=== PATIENT | female | born 1945 ===

== ENCOUNTER → 2018-03-07 | Outpatient (CLI) | payer MEDICARE, OTHER ==
[~2018-03-07] MED LIST: IOPAMIDOL (ISOVUE-300) 100 ML BTL ONE
== END ==
LOC: FIMAGING 13:52
PROVIDERS: ATTEND Physician Assistant
DX: K74.60 Unspecified cirrhosis of liver (principal); K76.89 Other specified diseases of liver; R18.8 Other ascites; K82.8 Other specified diseases of gallbladder; N28.1 Cyst of kidney, acquired
CPT/HCPCS: 74178; Q9967

== ENCOUNTER 2018-03-15 09:19 | Outpatient (CLI) | payer OTHER ==
[2018-03-15] MEDS ORDERED: BUPIVACAINE 0.25% 30 ML SDV ONE (10:02)
[2018-03-15] MEDS ORDERED: LIDOCAINE 1% 300 MG/30 ML SDV ONE (10:02)
[2018-03-15 10:15] LABS: INR 1.33 (0.83-1.16); PROTIME(PATIENT) 16.7 SEC (12.0-15.0)
[2018-03-15] MEDS ORDERED: FLUMAZENIL 0.5 MG/5 ML MDV IVP PRN (10:28)
[2018-03-15] MEDS ORDERED: PROTAMINE SULFATE 50 MG/5 ML VIAL IVP PRN (10:28)
[2018-03-15] MEDS ORDERED: MIDAZOLAM 2 MG/2 ML VIAL IVP PRN (10:28)
[2018-03-15] MEDS ORDERED: NALOXONE HCL 0.4 MG/ML INJ IVP PRN (10:28)
[2018-03-15] MEDS ORDERED: fentaNYL 100 MCG/2 ML INJ IVP PRN (10:28)
[2018-03-15] MEDS ORDERED: NS 1,000 ML IV SCH (10:30)
[2018-03-15] MEDS ORDERED: ONDANSETRON 4 MG/2 ML VIAL IVP PRN (12:03)
[2018-03-15] MEDS ORDERED: oxyCODONE IR 5 MG TAB PO PRN (12:03)
--- NOTE | 2018-03-15 12:06 | PDGENHP ---
History & Physical Chief Complaint: LIVER MASSES History of Present Illness: LIVER MASSES, AND DISTAL ESOPHAGEAL MASS POST BX Pertinent Past, Social, Family History: NON SMOKER Relevant Physical Exam: SOFT ABDOMEN, RRR, LUNGS CLEAR Cardiorespiratory Assessment: RRR, LUNGS CLEAR
--- NOTE | 2018-03-15 12:06 | PDPROPOC ---
Sedation Plan of Care Sedation Plan of Care: vital signs stable, mental status noted, patient educated of risks, benefits, alternatives, patient can tolerate sedation ASA Classification: ASA 1 Planned drugs: fentanyl, midazolam Mallampati Score: Class 1 Mallampati Reference Image: Patient passed 3-3-2 rule?: Yes
--- NOTE | 2018-03-15 12:07 | PDRADPN ---
Radiology Procedure Note Date of Procedure: 03/15/18 Radiologist: Tay Barkley Anesthesia: Local (Specify) (LIDOCAINE) Inf/Abcess present in the surg proc area at time of surgery?: No Depth: Organ Space (LIVER) EBL: Minimal Complications: NONE Specimen(s): 2 LIVER BX
[2018-03-15 15:00] VITALS: BP 111/72
== END 2018-03-15 15:03 | disposition home or self-care (01) ==
LOC: FIMAGING 09:19
PROVIDERS: ATTEND Physician Assistant
PROC: 0FB03ZX Excision of Liver, Percutaneous Approach, Diagnostic (ICD-10-PCS; principal; 2018-03-15 11:55)
DX: C78.7 Secondary malignant neoplasm of liver and intrahepatic bile duct (principal)
CPT/HCPCS: 47000; 76942; 88307; 88341; 88342; 99152; 99153; J2250; J3010; J2310

== ENCOUNTER 2018-03-24 19:21 | Inpatient (IN) | payer OTHER ==
--- NOTE | 2018-03-24 19:38 | EDPHY ---
H & P Stated Complaint: SOB X 1 DAY, R/T PAIN R RIBCAGE/RECENT DX ESOPHAGEAL,LIVER CA Time Seen by Provider: 03/24/18 19:37 - Personal History Current Tetanus Diphtheria and Acellular Pertussis (TDAP): No - Medical/Surgical History Hx Asthma: No Hx Chronic Respiratory Disease: No Hx Diabetes: No Hx Cardiac Disease: No Hx Renal Disease: No Hx Cirrhosis: No Hx Alcoholism: No Hx HIV/AIDS: No Hx Splenectomy or Spleen Trauma: No Other PMH: ESOPHAGEAL AND LIVER CA, HIATAL HERNIA, ANKLE, CARPAL, EYE SX - Social History Smoking Status: Former smoker Constitutional: Initial Vital Signs Temperature (C) 36.4 C 03/24/18 19:26 Heart Rate 128 H 03/24/18 19:26 Respiratory Rate 32 H 03/24/18 19:26 Blood Pressure 142/94 H 03/24/18 19:26 O2 Sat (%) 97 03/24/18 19:26 O2 Delivery Mode Nasal Cannula O2 (L/minute) 2 Allergies/Adverse Reactions: shellfish derived Allergy (Severe, Verified 03/08/18 16:21) Anaphylaxis tree nut [Nuts] Allergy (Severe, Verified 03/08/18 16:21) Anaphylaxis Penicillins Allergy (Verified 03/24/18 21:14) Rash/ couldn't breath Sulfa (Sulfonamide Antibiotics) Allergy (Verified 03/24/18 21:14) Swelling Home Medications: Medication Instructions Recorded ALPRAZolam [Xanax 0.5 MG (*)] 0.5 mg PO 03/24/18 Herbals/Supplements -Info Only 1 ea PO DAILY 03/24/18 Methyl Salicylate/Menthol 1 each TP DAILY PRN 03/24/18 [SALONPAS PATCH] Ranitidine HCl [Zantac] 150 mg PO BID 03/24/18 Medical Decision Making - Diagnostics Imaging Results: Imaging Impressions Abdomen CT 03/24/18 19:49 Impression: 1. Extensive hepatic metastatic disease appears to have progressed since the prior study 2. Thickening of the GE junction possibly representing primary esophageal cancer. 3. Increase in mild ascites. Findings discussed with Barry Davis MD at 20:50 hour, 03/24/2018. Chest/Thorax CTA 03/24/18 19:49 Impression: 1. No evidence of pulmonary embolus using CT protocol. 2. Large hiatal hernia with moderate thickening of the distal esophagus near the GE junction presumably related to known esophageal cancer. 3. Small right pleural effusion. Findings discussed with Barry Davis MD at 20:45 hour, 03/24/2018. Imaging: Discussed imaging studies w/ orthopedically impaired teacher Radiologist, I viewed and interpreted images myself ED Course/Re-evaluation: CHIEF COMPLAINT: Shortness of breath, abdominal pain HISTORY OF PRESENT ILLNESS: The patient is a 72 y/o female with a history of liver and esophageal cancer complaining of shortness of breath and right rib pain onset today. She denies having a cough. In addition to her shortness of breath, she also has a distended abdomen. She first noticed the distended abdomen on Sunday, 6 days ago , after an endoscopy. Due to the pain and shortness of breath, she decided to present to the emergency department. She denies headache, chest pain, urinary or bowel complaints, numbness, paresthesias, fevers. REVIEW OF SYSTEMS: A comprehensive 10 system review of systems is otherwise negative aside from elements mentioned in the history of present illness and medical decision making. PHYSICAL EXAM: HR, BP, O2 Sat, RR. Temp noted General Appearance: Alert, well hydrated, appropriate, and non-toxic appearing. Head: Atraumatic without scalp tenderness or obvious injury Eyes: Pupils equal, round, reactive to light and accommodation, EOMI, no trauma , no injection. Ears: Clear bilaterally, no perforation, normal landmarks Nose: Atraumatic, no rhinorrhea, clear. Throat: There is no erythema or exudates, no lesions, normal tonsils, mucus membranes moist. Neck: Supple, 2+ carotid upstroke, nontender, no lymphadenopathy. Respiratory: Bilateral rales, right greater than left. Working to breath, but is not hypoxic. Cardiovascular: Tachycardic, no murmurs, rubs, or gallops. Bilateral carotid, radial, dorsalis pedis, and posterior tibial pulses intact. Good capillary refill all extremities. Gastrointestinal: Abdomen is distended, rigid, and diffusely tender to palpation. No guarding or peritoneal signs. Musculoskeletal: Normal active ROM of all extremities, atraumatic. Neurological: Alert, appropriate, and interactive. The patient has normal DTRs and non-focal cranial nerves, motor, sensory, and cerebellar exam. Skin: No rashes, good turgor, no nodules on palpation. Past medical history: Esophageal and liver cancer, hiatal hernia Past surgical history: Ankle and wrist surgery, eye surgery Family history: Denies Social history: Family at bedside, lives in [place], retired, followed by Dr. Fernandez, oncologist DIAGNOSTICS/PROCEDURES/CRITICAL CARE TIME: EKG: The 12 lead EKG was interpreted by myself as sinus tachycardia with a rate of 117. See hard copy and/or "tracemaster" electronic copy for interpretation. Chest CTA: No acute findings, no PE Abdominopelvic CT: Worsening metastases and ascites DIFFERENTIAL DIAGNOSIS: The differential diagnosis for the patient's shortness of breath and hypoxemia included but was not limited to pneumonia, myocardial infarction, acute mountain sickness, high altitude pulmonary edema, congestive heart failure, and pulmonary embolus. The differential diagnosis for the patient's abdominal pain included but was not limited to metastases, ascites, ovarian cyst, pelvic inflammatory disease, ovarian torsion, urinary tract infection, ectopic , cholecystitis, and appendicitis. MEDICAL DECISION MAKING: The patient is a 72 y/o female with a history of liver and esophageal cancer complaining of shortness of breath and right rib pain onset today. On exam she is working to breath, tachypneic, and has bilateral rales (right is worse than left). She also has a distended and rigid abdomen. Labs, EKG, chest CTA, and abdominopelvic CT ordered; 1L IV NS and 1mg IV Dilaudid administered. 1946: I interpreted patient's EKG as sinus tachycardia with a rate of 117. 2012: Patient's WBC is 28,000. 2049: I spoke with Dr. Long, radiologist, who reports that the patient has worsening metastases and ascites. Her poor diaphragmatic excursion is most likely due to the abdominal pain and distension. She will need to admitted for pain control. 2gm Ceftriaxone administered. 2102: I consulted with the hospitalist service, Dr. Vigil accepts admission of this patient. 2129: Reassessed patient and discussed imaging and laboratory findings. I have also discussed plan for admission; which she is comfortable with. - Data Points Laboratory Results: Laboratory Results 03/24/18 19:45 03/24/18 19:45 03/24/18 03/24/18 03/24/18 19:53 19:45 19:45 WBC 28.26 10^3/uL H 10^3/uL (3.80-9.50) RBC 3.67 10^6/uL L 10^6/uL (4.18-5.33) Hgb 10.0 g/dL L g/dL (12.6-16.3) POC Hgb 11.9 gm/dL L gm/dL (12.6-16.3) Hct 31.1 % L % (38.0-47.0) POC Hct 35 % L % (38-47) MCV 84.7 fL fL (81.5-99.8) MCH 27.2 pg L pg (27.9-34.1) MCHC 32.2 g/dL L g/dL (32.4-36.7) RDW 15.3 % H % (11.5-15.2) Plt Count 798 10^3/uL H 10^3/uL (150-400) MPV 8.6 fL L fL (8.7-11.7) Neut % (Auto) Not Reported Lymph % (Auto) Not Reported [place] % (Auto) Not Reported Eos % (Auto) Not Reported Baso % (Auto) Not Reported Nucleat RBC Rel Count Not Reported Absolute Neuts (auto) Not Reported Absolute Lymphs (auto) Not Reported Absolute Monos (auto) Not Reported Absolute Eos (auto) Not Reported Absolute Basos (auto) Not Reported Absolute Nucleated RBC Not Reported Immature Gran % Not Reported Seg Neutrophils % 82.0 % % Band Neutrophils % 8.0 % % Lymphocytes % 3.0 % % Monocytes % 7.0 % % Eosinophils % 0.0 % % Basophils % 0.0 % % Metamyelocytes % 0.0 % % Myelocytes % 0.0 % % Promyelocytes % 0.0 % % Blast Cells % 0.0 % % Immature Gran # Not Reported Absolute Seg Neuts 23.17 10^/uL H 10^/uL (1.70-6.50) Absolute Band Neuts 2.26 10^3/uL H 10^3/uL (0.00-0.70) Absolute Lymphocytes 0.85 10^3/uL L 10^3/uL (1.00-3.00) Absolute Monocytes 1.98 10^3/uL H 10^3/uL (0.30-0.80) Absolute Eosinophils 0.00 10^3/uL L 10^3/uL (0.03-0.40) Absolute Basophils 0.00 10^3/uL L 10^3/uL (0.02-0.10) Absolute Metamyelocyte 0.00 10^3/mL 10^3/mL (0.00-0.00) Absolute Myelocytes 0.00 10^3/mL 10^3/mL (0.00-0.00) Absolute Promyelocytes 0.00 10^3/uL 10^3/uL (0.00-0.00) Absolute Plasma Cells 0.00 10^3/uL 10^3/uL (0.00-0.00) Nucleated RBCs 0 /100 WBC /100 WBC (0-0) Absolute Blast Cells 0.00 10^3/uL 10^3/uL (0.00-0.00) Plasma Cells % 0.0 % % Platelet Estimate INCREASED H (ADEQ) Polychromasia 1+ H Microcytic Cells 1+ H Echinocytes 1+ H POC Sodium 129 mEq/L L mEq/L (135-145) Sodium 129 mEq/L L mEq/L (135-145) POC Potassium 4.3 mEq/L mEq/L (3.3-5.0) Potassium 5.0 mEq/L mEq/L (3.3-5.0) POC Chloride 90 mEq/L L mEq/L (97-110) Chloride 88 mEq/L L mEq/L (97-110) Carbon Dioxide 19 mEq/l L mEq/l (22-31) Anion Gap 22 mEq/L H mEq/L (8-16) POC BUN 20 mg/dL mg/dL (7-23) BUN 21 mg/dL mg/dL (7-23) Creatinine 0.6 mg/dL mg/dL (0.6-1.0) POC Creatinine 0.6 mg/dL mg/dL (0.6-1.0) Estimated GFR > 60 Glucose 101 mg/dL H mg/dL (70-100) POC Glucose 105 mg/dL H mg/dL (70-100) Calcium 8.8 mg/dL mg/dL (8.5-10.4) Total Bilirubin 1.9 mg/dL H mg/dL (0.1-1.4) Conjugated Bilirubin 1.4 mg/dL H mg/dL (0.0-0.5) Unconjugated Bilirubin 0.5 mg/dL mg/dL (0.0-1.1) AST 231 IU/L H IU/L (14-46) ALT 97 IU/L H IU/L (9-52) Alkaline Phosphatase 390 IU/L H IU/L (38-126) Total Protein 6.1 g/dL L g/dL (6.3-8.2) Albumin 2.9 g/dL L g/dL (3.5-5.0) Lipase 161 IU/L IU/L (23-300) Medications Given: Discontinued Medications Hydromorphone HCl (Dilaudid) 1 mg IVP EDNOW ONE Stop: 03/24/18 19:55 Last Admin: 03/24/18 19:58 Dose: 1 mg Sodium Chloride (Ns) 1,000 mls @ 0 mls/hr IV EDNOW ONE; Wide Open PRN Reason: Protocol Stop: 03/24/18 19:48 Last Admin: 03/24/18 19:59 Dose: 1,000 mls Point of Care Test Results: Chemistry 03/24/18 19:53 POC Sodium 129 mEq/L L mEq/L (135-145) POC Potassium 4.3 mEq/L mEq/L (3.3-5.0) POC Chloride 90 mEq/L L mEq/L (97-110) POC BUN 20 mg/dL mg/dL (7-23) POC Creatinine 0.6 mg/dL mg/dL (0.6-1.0) POC Glucose 105 mg/dL H mg/dL (70-100) ISTAT H&H 03/24/18 19:53 POC Hgb 11.9 gm/dL L gm/dL (12.6-16.3) POC Hct 35 % L % (38-47) Departure - Departure Disposition: [facility] Inpatient Acute Clinical Impression: Pain management Ascites Qualifiers: Ascites type: malignant Qualified Code(s): R18.0 - Malignant ascites Metastasis Qualifiers: Area of secondary neoplastic involvement: digestive structure Digestive structure secondary neoplasm location: metastatic to liver Qualified Code(s): C78.7 - Secondary malignant neoplasm of liver and intrahepatic bile duct Condition: Fair Referrals: Rashida Rios PA [Primary Care Provider] - As per Instructions Report Scribed for: Barry Davis Report Scribed by: Damaris Plasencia Date of Report: 03/24/18 Time of Report: 19:38
[2018-03-24] MEDS ORDERED: NS 1,000 ML IV ONE (19:47)
[2018-03-24] MEDS ORDERED: HYDROmorphONE/DILAUDID 2 MG/ML INJ IVP ONE (19:54)
[2018-03-24] MEDS ORDERED: IOPAMIDOL (ISOVUE 370) 100 ML BTL IV ONE (19:57)
--- NOTE | 2018-03-24 20:02 | CPEKG ---
Test Reason : OPEN Blood Pressure : / mmHG Vent. Rate : 117 BPM Atrial Rate : 117 BPM P-R Int : 125 ms QRS Dur : 072 ms QT Int : 281 ms P-R-T Axes : 064 -64 046 degrees QTc Int : 392 ms Sinus tachycardia Inferior infarct, old Anterior infarct, old Confirmed by Barry Davis ([id number]) on 03/24/2018 8:01:36 PM Referred By: Confirmed By:Barry Davis
[2018-03-24 20:09] LABS: PLATELET COUNT 798 10^3/uL (150-400)
[2018-03-24] MEDS ORDERED: ONDANSETRON DISINTEGRATING 4 MG TAB PO PRN (21:20)
[2018-03-24] MEDS ORDERED: ONDANSETRON 4 MG/2 ML VIAL IVP PRN (21:20)
[2018-03-24] MEDS ORDERED: PROMETHAZINE HCL 25 MG/ML INJ IVP PRN (21:20)
[2018-03-24] MEDS ORDERED: ALBUMIN 5% 250 ML IV ONE (21:20)
[2018-03-24] MEDS ORDERED: ACETAMINOPHEN 325 MG TAB PO PRN (21:20)
[2018-03-24] MEDS ORDERED: PROMETHAZINE HCL 25 MG TAB PO PRN (21:20)
[2018-03-24] MEDS ORDERED: oxyCODONE IR 5 MG TAB PO PRN (21:20)
[2018-03-24] MEDS ORDERED: MENTHOL TP PRN (21:23)
[2018-03-24] MEDS ORDERED: ALPRAZolam 0.25 MG TAB PO PRN (21:23)
[2018-03-24] MEDS ORDERED: METHYL SALICYLATE TP PRN (21:23)
--- NOTE | 2018-03-24 22:31 | PDGENHP ---
History and Physical - Chief Complaint Acute abdominal pain - History of Present Illness Primary care provider: Dr. Katherine Rios Primary oncologist: Dr. Indra Fernandez HPI: 72-year-old female presenting with acute abdominal pain located in the right upper quadrant with associated abdominal distension, belching, shortness of breath, with onset of symptoms on the day of presentation and significant worsening thereafter. Patient reports that her abdominal distension began approximately 6 days ago but was not accompanied by the other symptoms until today. Belching has somewhat alleviated her symptom of abdominal discomfort as has Dilaudid received in the emergency department. Shortness of breath is exacerbated by deep inspiration. She has moved her bowels on the day of presentation, reportedly normal appearing stool. She does not have any oral pain medications for pain relief at home. Of note, the patient was recently diagnosed with metastatic esophageal cancer and has been scheduled to receive port placement on 04/01, with chemotherapy thereafter. History Information - Allergies/Home Medication List Allergies/Adverse Reactions: shellfish derived Allergy (Severe, Verified 03/08/18 16:21) Anaphylaxis tree nut [Nuts] Allergy (Severe, Verified 03/08/18 16:21) Anaphylaxis Penicillins Allergy (Verified 03/24/18 21:14) Rash/ couldn't breath Sulfa (Sulfonamide Antibiotics) Allergy (Verified 03/24/18 21:14) Swelling Home Medications: ALPRAZolam [Xanax 0.5 MG (*)] 0.25 mg PO HS PRN 03/24/18 [Last Taken Unknown] Herbals/Supplements -Info Only 1 ea PO DAILY 03/24/18 [Last Taken Unknown] Methyl Salicylate/Menthol [SALONPAS PATCH] 1 each TP DAILY PRN 03/24/18 [Last Taken 03/24/18] Ranitidine HCl [Zantac] 150 mg PO BID 03/24/18 [Last Taken 03/24/18 09:00] I have personally reviewed and updated: family history, medical history, social history, surgical history - Past Medical History Additional medical history: 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 - Surgical History Additional surgical history: Liver biopsy on 03/15 - Family History Additional family history: Mother with CVA and venous thromboembolism, father with lung cancer and venous thromboembolism - Social History Smoking Status: Former smoker Alcohol Use: None Drug Use: None Additional social history: Normally independent in ADLs Review of Systems Review of Systems: ROS: 10pt was reviewed & negative except for what was stated in HPI & below Constitutional: Reports: weakness Respiratory: Reports: shortness of breath Gastrointestinal: Reports: abdominal pain, abdominal distention, other (Belching ) Physical Exam Physical Exam: Temp Pulse Resp BP Pulse Ox 36.4 C 112 H 21 H 133/88 H 96 03/24/18 19:26 03/24/18 21:00 03/24/18 21:00 03/24/18 21:00 03/24/18 21:00 Constitutional: no apparent distress, not in pain, chronically ill appearing, uncomfortable, cachectic Eyes: PERRL, anicteric sclera, EOMI Ears, Nose, Mouth, Throat: moist mucous membranes, hearing normal, ears appear normal, no oral mucosal ulcers Cardiovascular: tachycardia, edema (Trace bilateral lower extremity), No systolic murmur, No irregularly irregular Respiratory: reduced air movement (Bilateral bases), No expiratory wheeze, No inspiratory crackles, No bronchial breath sounds Gastrointestinal: tenderness (Mild to moderate depth in the mid epigastric area palpation), ascites, distension (Moderate to severe), other (Possible abdominal wall masses palpated), No guarding Skin: warm, No rash Neurologic: AAOx3, No weakness (Motor strength 5/5 bilateral lower extremities) , No facial droop Psychiatric: interacting appropriately, not anxious, not encephalopathic, thought process linear, other (Intermittently lethargic) Lab Data & Imaging Review 03/24/18 19:45 03/24/18 19:45 WBC 28.26 10^3/uL (3.80-9.50) H 03/24/18 19:45 RBC 3.67 10^6/uL (4.18-5.33) L 03/24/18 19:45 Hgb 10.0 g/dL (12.6-16.3) L 03/24/18 19:45 POC Hgb 11.9 gm/dL (12.6-16.3) L 03/24/18 19:53 Hct 31.1 % (38.0-47.0) L 03/24/18 19:45 POC Hct 35 % (38-47) L 03/24/18 19:53 MCV 84.7 fL (81.5-99.8) 03/24/18 19:45 MCH 27.2 pg (27.9-34.1) L 03/24/18 19:45 MCHC 32.2 g/dL (32.4-36.7) L 03/24/18 19:45 RDW 15.3 % (11.5-15.2) H 03/24/18 19:45 Plt Count 798 10^3/uL (150-400) H 03/24/18 19:45 MPV 8.6 fL (8.7-11.7) L 03/24/18 19:45 Neut % (Auto) Not Reported 03/24/18 19:45 Lymph % (Auto) Not Reported 03/24/18 19:45 [place] % (Auto) Not Reported 03/24/18 19:45 Eos % (Auto) Not Reported 03/24/18 19:45 Baso % (Auto) Not Reported 03/24/18 19:45 Nucleat RBC Rel Count Not Reported 03/24/18 19:45 Absolute Neuts (auto) Not Reported 03/24/18 19:45 Absolute Lymphs (auto) Not Reported 03/24/18 19:45 Absolute Monos (auto) Not Reported 03/24/18 19:45 Absolute Eos (auto) Not Reported 03/24/18 19:45 Absolute Basos (auto) Not Reported 03/24/18 19:45 Absolute Nucleated RBC Not Reported 03/24/18 19:45 Immature Gran % Not Reported 03/24/18 19:45 Seg Neutrophils % 82.0 % 03/24/18 19:45 Band Neutrophils % 8.0 % 03/24/18 19:45 Lymphocytes % 3.0 % 03/24/18 19:45 Monocytes % 7.0 % 03/24/18 19:45 Eosinophils % 0.0 % 03/24/18 19:45 Basophils % 0.0 % 03/24/18 19:45 Metamyelocytes % 0.0 % 03/24/18 19:45 Myelocytes % 0.0 % 03/24/18 19:45 Promyelocytes % 0.0 % 03/24/18 19:45 Blast Cells % 0.0 % 03/24/18 19:45 Immature Gran # Not Reported 03/24/18 19:45 Absolute Seg Neuts 23.17 10^/uL (1.70-6.50) H 03/24/18 19:45 Absolute Band Neuts 2.26 10^3/uL (0.00-0.70) H 03/24/18 19:45 Absolute Lymphocytes 0.85 10^3/uL (1.00-3.00) L 03/24/18 19:45 Absolute Monocytes 1.98 10^3/uL (0.30-0.80) H 03/24/18 19:45 Absolute Eosinophils 0.00 10^3/uL (0.03-0.40) L 03/24/18 19:45 Absolute Basophils 0.00 10^3/uL (0.02-0.10) L 03/24/18 19:45 Absolute Metamyelocyte 0.00 10^3/mL (0.00-0.00) 03/24/18 19:45 Absolute Myelocytes 0.00 10^3/mL (0.00-0.00) 03/24/18 19:45 Absolute Promyelocytes 0.00 10^3/uL (0.00-0.00) 03/24/18 19:45 Absolute Plasma Cells 0.00 10^3/uL (0.00-0.00) 03/24/18 19:45 Nucleated RBCs 0 /100 WBC (0-0) 03/24/18 19:45 Absolute Blast Cells 0.00 10^3/uL (0.00-0.00) 03/24/18 19:45 Plasma Cells % 0.0 % 03/24/18 19:45 Platelet Estimate INCREASED (ADEQ) H 03/24/18 19:45 Polychromasia 1+ H 03/24/18 19:45 Microcytic Cells 1+ H 03/24/18 19:45 Echinocytes 1+ H 03/24/18 19:45 POC Sodium 129 mEq/L (135-145) L 03/24/18 19:53 Sodium 129 mEq/L (135-145) L 03/24/18 19:45 POC Potassium 4.3 mEq/L (3.3-5.0) 03/24/18 19:53 Potassium 5.0 mEq/L (3.3-5.0) 03/24/18 19:45 POC Chloride 90 mEq/L (97-110) L 03/24/18 19:53 Chloride 88 mEq/L (97-110) L 03/24/18 19:45 Carbon Dioxide 19 mEq/l (22-31) L 03/24/18 19:45 Anion Gap 22 mEq/L (8-16) H 03/24/18 19:45 POC BUN 20 mg/dL (7-23) 03/24/18 19:53 BUN 21 mg/dL (7-23) 03/24/18 19:45 Creatinine 0.6 mg/dL (0.6-1.0) 03/24/18 19:45 POC Creatinine 0.6 mg/dL (0.6-1.0) 03/24/18 19:53 Estimated GFR > 60 03/24/18 19:45 Glucose 101 mg/dL (70-100) H 03/24/18 19:45 POC Glucose 105 mg/dL (70-100) H 03/24/18 19:53 Calcium 8.8 mg/dL (8.5-10.4) 03/24/18 19:45 Total Bilirubin 1.9 mg/dL (0.1-1.4) H 03/24/18 19:45 Conjugated Bilirubin 1.4 mg/dL (0.0-0.5) H 03/24/18 19:45 Unconjugated Bilirubin 0.5 mg/dL (0.0-1.1) 03/24/18 19:45 AST 231 IU/L (14-46) H 03/24/18 19:45 ALT 97 IU/L (9-52) H 03/24/18 19:45 Alkaline Phosphatase 390 IU/L (38-126) H 03/24/18 19:45 Total Protein 6.1 g/dL (6.3-8.2) L 03/24/18 19:45 Albumin 2.9 g/dL (3.5-5.0) L 03/24/18 19:45 Lipase 161 IU/L (23-300) 03/24/18 19:45 Visualized and Interpreted EKG results: Yes EKG Interpretation: Positive for: other (Sinus tachycardia with Q-waves inferiorly and poor R-wave progression in lead V2 to V3) Assessment & Plan Assessment: 72-year-old female presents with acute abdominal pain and worsening ascites in the setting of metastatic adenocarcinoma Plan: 1. Ascites. Acute, new problem this provider, further workup indicated. Suspect the patient has rapidly worsening malignant ascites with possible SBP given her significant leukocytosis and abdominal pain -get diagnostic and therapeutic paracentesis -empirically treat her with IV ceftriaxone, continue until ascitic fluid evaluation complete -patient's ascites will most likely continue to worsen with volume resuscitation and she may require follow-up paracentesis after the above -she will most likely require chemotherapy as the only method of controlling her malignant ascites -supportive pain antiemetic medication 2. Metastatic adenocarcinoma of the esophagus. Recent diagnosis, reviewed outside records including 03/[address] Lauri Barkley, no complications -will contact the on-call oncology coverage and request consultation in a.m. -patient's family is having a challenging time dealing with the new diagnosis and they are receiving most of the prognostic information on behalf of the patient, per her request -the patient and her family would benefit immensely by receiving a realistic projection as to whether the patient most likely has survival on the magnitude of weeks verses months verses years depending on chemotherapy response -they are agreeable to palliative consultation and completing advanced directive during this episode of care -if it is determined that the patient may have a significant prognostic benefit from chemotherapy and early initiation, it may be prudent to get port placement during this hospitalization as well as initiation of chemotherapy -Dr. Rivers had been scheduled to perform port on 04/01, may need to be sooner depending on whether not the patient has SBP requiring antibiotic therapy 3. Hyponatremia. Acute, most likely secondary to poor oncotic pressure from metastatic malignancy consuming much of the liver with serum albumin level of 2.9, resulting in renal hypoperfusion -give normal saline overnight +1 dose of 250 mL of albumin at this time, gauge urine output and affect 4. Acute metabolic acidosis. Most likely secondary to lactic acid and intravascular depletion in the setting of above, get lactic acid level now and monitor serum bicarbonate level Diet. Clears tonight, gauge whether to advance tomorrow Prophylaxis. High risk patient, hold pharmacologic given her procedure in a.m. , placed on SCDs, initiate pharmacologic after paracentesis Code. Full per patient at this time, her daughter is MD GUTHRIE Disposition. Anticipated discharge is uncertain this time, anticipated length stay is greater than 48 hr for reasonable medical necessity including acute ascites and possible SBP in the setting of high risk metastatic adenocarcinoma of the esophagus. I have discussed patient's presentation with Dr. Barry Davis, he and I both agree the patient meets inpatient criteria.
[2018-03-24 22:52] LABS: INR 1.45 (0.83-1.16); PROTIME(PATIENT) 17.8 SEC (12.0-15.0)
[2018-03-24] MEDS: FAMOTIDINE 20 MG TAB PO SCH (23:00)
[2018-03-25 04:41] LABS: INR 1.54 (0.83-1.16); PROTIME(PATIENT) 18.6 SEC (12.0-15.0)
[2018-03-25 04:51] LABS: PLATELET COUNT 632 10^3/uL (150-400)
[2018-03-25] MEDS: FAMOTIDINE 20 MG TAB PO SCH ×2 (06:20→21:30)
[2018-03-25] MEDS ORDERED: LIDOCAINE 1% 300 MG/30 ML SDV ONE (08:14)
[2018-03-25] MEDS ORDERED: Herbals/Supplements -Info Only PO SCH (09:00)
--- NOTE | 2018-03-25 09:00 | HOSPPROG ---
Hospitalist Progress Note Assessment/Plan: Presumed secondary bacterial peritonitis - no orgs on GS. wbc's 28K-->27K on Ceftriaxone. -discussed with ID who will consult -change to Meropenem 1g IV q8h -follow culture data Severe sepsis 2/2 peritonitis. (HR, RR, leukocytosis, elevated lactate). Hemodynamics are improved, no hypotension. -changing to Meropenem as above -f/u ascitic fluid Cx Lactic acidosis. Sepsis / hypoperfusion and liver disease. Lactate remains elevated, though has trended down from 9.3-->6.3 -cont to trend Metastatic adenocarcinoma of the esophagus. Liver bx 03/15. Awaiting PORT placement 04/[address] Rivers, was planning to then start chemo -oncology consult regarding prognosis, PORT timing -pt requested T3 for pain control, ordered Hyponatremia. Na slightly improved with NS. -cont volume resuscitation Diet. Clears Prophylaxis. High risk patient, hold pharm for procedure today. SCD's now, start Lovenox tomorrow. Full code. Her daughter is MD GUTHRIE Disposition. Cont inpt, palliative care consult pending. Pt new to my care. Records reviewed. Subjective: Pt feels a bit better today. Less pain. No fevers or chills. No N /V. No CP or SOB. She is very weak, poor appetite. Objective: Vital Signs Temp Pulse Resp BP Pulse Ox 36.6 C 94 18 132/84 H 94 03/25/18 07:51 03/25/18 07:51 03/25/18 07:51 03/25/18 07:51 03/25/18 07:51 Laboratory Results 03/25/18 04:10 03/25/18 04:10 03/24/18 03/25/18 03/26/18 05:59 05:59 05:59 Intake Total 1300 1018 Output Total 700 Balance 600 1018 PT 18.6 SEC (12.0-15.0) H 03/25/18 04:10 INR 1.54 (0.83-1.16) H 03/25/18 04:10 - Physical Exam Constitutional: no apparent distress Eyes: PERRL Ears, Nose, Mouth, Throat: moist mucous membranes Cardiovascular: tachycardia Respiratory: no respiratory distress, reduced air movement Gastrointestinal: other (soft, moderate distention, though surprisingly not significantly tender, no pain with percussion) Skin: warm Musculoskeletal: full muscle strength Neurologic: AAOx3 Psychiatric: interacting appropriately ICD10 Worksheet Patient Problems: Problems Problem Status Onset Ascites Acute Metastasis Acute Pain management Acute
--- NOTE | 2018-03-25 09:47 | PDMN ---
Medical Necessity Medical necessity: [facility] [place]: M570 - liver disease complication- A-2 days: Ascites- acute abd pain in high risk pt. with met. adenocarcinoma of the esophagus.- recent Dg., also with hyponatremia, acute metabolic acidosis, sepsis 2/2 presumed SBP ( increased HR, RR, leukocytosis, elevated lactate) further monitoring, eval and tx needed anticipate > 2 MN,
--- NOTE | 2018-03-25 14:31 | ASMTCMCOM ---
CM Note CM Note Notes: Patient plan of care reviewed in interdisciplinary rounds. 72 year old female admitted with a diagnosis of progressive abdominal cancer and liver mets. Seen by oncology today, Was scheduled for implantable port later this month with surgery. ID to be consulted. Needs TBD. Plan: TBD Date Signed: 03/25/2018 02:31 PM Electronically Signed By:Darling Lou RN
[2018-03-25] MEDS: MEROPENEM 1 GM in NS 100 ML IV SCH ×2 (15:10→21:27)
--- NOTE | 2018-03-25 16:48 | GCON ---
INPATIENT INFECTIOUS DISEASE CONSULTATION REFERRING PHYSICIAN: Bessie August MD REASON FOR REFERRAL: Primary peritonitis. HISTORY OF PRESENT ILLNESS: Patient is a 72-year-old female with recently diagnosed esophageal cance r with significant burden of hepatic metastasis. The patient presented to [facility] o n 03/24/2018, complaining of abdominal pain that had been onset over the past 6 days. She had also b een noticing some increased abdominal distention, shortness of breath, and increased belching. Sampl ing of the peritoneal fluid revealed significant amount of white blood cells. We are consulted by [facility] Hospitalist Service and she is started on meropenem 1 g IV q.8 hours per our recommendation. She i s sitting up, in good spirits, and comfortable in her bed. Her family is in the room. She has no cu rrent complaints. PAST MEDICAL HISTORY: Metastatic adenocarcinoma of the esophagus. PAST SURGICAL HISTORY: Status post liver biopsy on March 15. ANTIBIOTICS: Meropenem. ALLERGIES: The patient has reported allergy to penicillin. SOCIAL HISTORY: Patient is a remote smoker. No alcohol or drug use. FAMILY HISTORY: Reviewed, but noncontributory. REVIEW OF SYSTEMS: Other than that detailed above in the history of present illness, a comprehensive 10-system review is negative. PHYSICAL EXAMINATION: VITAL SIGNS: Temperature maximum is 36.6, temperature current is 36.4, heart rate 102, respiratory rate is 18, blood pressure is 124/80. GENERAL: The patient is a well-formed, well-nourished older female in no acute distress. She is not toxic in appearance. She is alert and oriented x3. She is pleasant in demeanor. HEENT: Normocephalic for age. Atraumatic. No scleral i cterus. No oral lesion or drainage from the nares. EYES: Lids and conjunctivae are within normal l imits. Pupils are equal and round bilaterally. NECK: Supple. No meningismus. LUNGS: Clear to au scultation bilaterally with good effort. HEART: Regular rate, borderline tachycardic. No murmur, r ub, or gallop noted. Regular rhythm. ABDOMEN: Soft, distended, nontender. No masses noted. SKIN: Warm and dry to the touch. No rash or lesions seen. MUSCULOSKELETAL: No muscle belly tenderness is noted. No joint line effusion or arthritis seen. NEURO: Cranial nerves 2 through 12 seem to be intact. Peripheral sensation seems intact in extremities. LABORATORY DATA: Patient has a CBC dated 03/25/2018, shows a white blood cell count of 27.3, hemoglo bin of 9.1, hematocrit of 27.7, and a platelet count of 632. Differential is mildly left-shifted wit h 79% segmented neutrophils, 11% band forms. Serum chemistries on 03/25/2018 show sodium 130, potass ium 4.5, chloride of 93, bicarbonate of 23, BUN of 22, and creatinine 0.6. Total bilirubin is 1.5, c onjugated bilirubin is 1.2, AST is 163, ALT is 83. Urinalysis on 03/25/2018 shows 1 to 3 white cells and 1 to 3 red cells per high-power field. Peritoneal fluid on 03/25/2018, shows 6830 white cells, 3092 red cells, 96% of the white blood cells are neutrophils. RADIOLOGIC DATA: Patient has an abdominal CT dated 03/24/2018, which shows extensive hepatic metasta tic disease which has progressed since the prior comparator study of 03/07/2018, increase in mild asc ites. ASSESSMENT: Probable peritonitis secondary to translocation of gastrointestinal bacteria from either the biliary tree or the gastrointestinal system. I suspect that the metastatic malignancy burden in the liver is responsible for increased portal pressures that predisposed this process. Agree with m eropenem coverage. We will follow blood cultures and peritoneal fluid cultures and adjust accordingl y. PLAN: 1. Meropenem 1 g IV q.8 hours. 2. Follow vital signs, lab values, and clinical course. /[id number]/MODL
[2018-03-25] MEDS: NS 1,000 ML IV SCH (17:11)
--- NOTE | 2018-03-25 19:44 | PDCONSULT ---
Stretcher Leveler Operator Helper Note: Patient is a 72-year-old female with a recent diagnosis of metastatic esophageal carcinoma who presented to the emergency room for right upper quadrant abdominal discomfort chills and generalized weakness admitted with concerns for peritonitis. Patient presented to the emergency room on March 24, 2018 with a 6 day history of right upper abdominal discomfort. With this abdominal discomfort she notes abdominal distention as well as shortness of breath. She has also noticed a decrease in her exercise tolerance as well as generalized energy level is had some chills off and on which is unusual for her. She was subsequently admitted to the hospital a CT angiogram of the chest did not demonstrate a pulmonary embolism she had a CT scan of the abdomen and pelvis which showed worsening hepatic metastasis however increased ascites was noted. Her white blood cell count was found to be 28,260 therefore with the increased ascites there was concern for peritonitis. Patient had a tap of her peritoneal fluid which showed roughly lasts 6000 white blood cells with 94% of them being PMNs. Patient was started on albumin and antibiotics. She does report however that the paracentesis has improved her shortness of breath as well as her abdominal pain.Patient reports feeling somewhat better since admission to the hospital and albumin and antibiotics were administered. She said she had a ultrasound-guided peritoneal fluid examination with minimal return of ascitic fluid. Patient was diagnosed with metastatic esophageal adenocarcinoma after evaluation of epigastric discomfort and constitutional symptoms led to a CT scan on 03/07/2018 which showed pseudocirrhosis with numerous hepatic metastasis concerning for metastatic disease the distal esophagus was also thickened and therefore felt to represent a primary lesion. Patient underwent endoscopy on 03/12/2018 which showed a large fungating mass with no stigmata of recent bleeding found in the lower third of the esophagus at the gastroesophageal junction mass was partially obstructing and partially circumferential involving two thirds of the lumen circumference biopsies were taken and demonstrated adenocarcinoma which was subsequently found to be HER-2 negative. Patient did have plans for chemotherapy after port placement on 04/01/2018 in particular FOLFOX. Review of systems: Complete 12 point review of systems is obtained and found to be negative unless indicated in the history of the present illness Past medical history: Superficial bladder cancer Past surgical history: Presumed TURBT for above Social history: Patient is a former smoker she denies history of alcohol or drug use presents today with her daughter Family history: Mother with CVA and venous thromboembolism Father with lung cancer and venous thrombosis Physical examination: Vital signs reviewed General: No acute distress appearing nontoxic female HEENT: Pupils equal round reactive to light no scleral icterus or conjunctival pallor was appreciated oral mucosa is moist without any evidence oral pharyngeal lesions Neck is: Supple no adenopathy Cardiovascular: Regular rate and rhythm without rubs or gallops or murmur Chest: Clear to auscultation and percussion in bilateral posterior lungs Abdomen: Soft, diffusely distended, no hepatosplenomegaly was appreciated Nontender no rebound or guarding Extremities: Warm well perfused 2+ dorsalis pedis and radial pulses bilaterally Neurologic: Cranial nerves II through XII are intact 5 out of 5 upper and lower extremity strength bilaterally alert and oriented Assessment & Plan Assessment: Assessment and Plan: Patient is a 72-year-old female with recent diagnosis of metastatic HER-2 negative esophageal adenocarcinoma who presents with worsening abdominal distention chills and generalized fatigue separately found to have evidence of peritonitis. Problem #1 peritonitis Patient has increased white blood cells in the ascitic fluid around 6500, 94% of these are felt to be PMNs. With the acute onset of the patient's symptoms as well as some of her constitutional symptoms in particular chills and fatigue this is concerning for bacterial peritonitis. She is appropriately received a ceftriaxone and received albumin. Her increased ascites may represent malignant ascites cytology is pending however or worsening portal hypertension from pseudocirrhosis in the setting of worsening liver metastasis. -Would follow-up the Gram stain and cultures. -Would continue antibiotics and narrow as appropriate Problem #2 metastatic esophageal adenocarcinoma, HER-2 negative Patient has had evidence of progression of her hepatic metastasis on admission CT scan on 03/24/[address] scan from 03/07/2018. Given patient's underlying pseudocirrhosis or prognosis however she is treatment korey and it is possible she may have a good response to FOLFOX chemotherapy. With that said we will plan on initiating FOLFOX when it appears that she is more stable from a infection standpoint. Jc Jacob
[2018-03-25] MEDS: ACETAMINOPHEN/CODEINE 300/30MG TAB PO PRN (19:57)
[2018-03-25] MEDS: MELATONIN 3 MG TAB PO SCH (20:05)
[2018-03-26] MEDS: NS 1,000 ML IV SCH (00:17)
[2018-03-26] MEDS ORDERED: CALCIUM CARBONATE 500 MG CHEWABLE TAB PO PRN (00:41)
[2018-03-26 04:35] LABS: INR 1.46 (0.83-1.16); PROTIME(PATIENT) 17.9 SEC (12.0-15.0)
[2018-03-26 04:52] LABS: PLATELET COUNT 540 10^3/uL (150-400)
[2018-03-26] MEDS: MEROPENEM 1 GM in NS 100 ML IV SCH ×3 (05:08→22:32)
--- NOTE | 2018-03-26 08:05 | HOSPPROG ---
Hospitalist Progress Note Assessment/Plan: #Severe sepsis: 2/2 peritonitis with GI translocation. Cultures pending. IV meropenem #Lactic acidosis: from acute infection, tumor burden #Hyponatremia: improving #Transaminitis: due to hypotension, tumor burden #Normocytic anemia: H/H stable #Metastatic esophageal carcinoma: plan to initiate chemo tomorrow. PICC line ordered Agreeable to palliative care consult #GERD: resolved with Ranitidine #Diet: ADAT #DVT ppx: Lovenox #Disp: inpatient admission for IV abx Subjective: burning in stomach all night; wants Ranitidine Objective: Vital Signs Temp Pulse Resp BP Pulse Ox 36.5 C 113 H 18 125/82 H 94 03/26/18 05:12 03/26/18 07:56 03/26/18 07:56 03/26/18 07:56 03/26/18 07:56 Microbiology 03/25/18 09:30 Gram Stain - Final Peritoneal Fluid - Aspirate Laboratory Results 03/26/18 04:20 03/26/18 04:20 03/25/18 03/26/18 03/27/18 05:59 05:59 05:59 Intake Total 1300 5448 Output Total 700 660 Balance 600 4788 PT 17.9 SEC (12.0-15.0) H 03/26/18 04:20 INR 1.46 (0.83-1.16) H 03/26/18 04:20 - Physical Exam Constitutional: no apparent distress Eyes: PERRL Ears, Nose, Mouth, Throat: moist mucous membranes Cardiovascular: regular rate and rhythym Gastrointestinal: normoactive bowel sounds, distension, No guarding, No rebound Genitourinary: no bladder fullness Skin: warm Musculoskeletal: full muscle strength Neurologic: AAOx3, CN II-XII Intact Psychiatric: interacting appropriately ICD10 Worksheet Patient Problems: Problems Problem Status Onset Ascites Acute Metastasis Acute Pain management Acute
[2018-03-26] MEDS ORDERED: ENOXAPARIN 40 MG/0.4 ML SYR SC SCH (09:00)
[2018-03-26] MEDS: FAMOTIDINE 20 MG TAB PO SCH (10:06)
--- NOTE | 2018-03-26 14:57 | PCMIDPN ---
Assessment/Plan: Assessment/Plan: * Peritonitis likely associated with biliary etiology or GI translocation: Clinically improved still with prominent leukocytosis. Blood and peritoneal cultures remain no growth to date. Most likely associated with enteric mushtaq. Will continue meropenem pending additional culture data. Plans to start chemotherapy tomorrow - no ID opposition to this approach provided continued clinical improvement. 03/26/18 14:54 Subjective: Patient feels significantly better. Abdominal distension without pain. Plans to start chemotherapy tomorrow. Objective: Vital Signs Temp Pulse Resp BP Pulse Ox 36.6 C 100 19 127/74 H 95 03/26/18 11:36 03/26/18 11:36 03/26/18 11:36 03/26/18 11:36 03/26/18 11:36 Microbiology 03/25/18 09:30 Gram Stain - Final Peritoneal Fluid - Aspirate Laboratory Results 03/26/18 04:20 03/26/18 04:20 03/25/18 03/26/18 03/27/18 05:59 05:59 05:59 Intake Total 1300 5448 Output Total 700 660 Balance 600 4788 Meropenem # 2 Blood cultures x2 no growth Peritoneal cultures no growth to date - Physical Exam General Appearance: alert, no apparent distress EENT: other (Brown coating on tongue), No scleral icterus, No thrush Respiratory: other (Decreased breath sounds right base) Cardiac/Chest: tachycardia Abdomen: non-tender, distended Skin: No rash, No embolic lesions - Time Spent With Patient Time Spent with Patient: greater than 25 minutes Time Spent with Patient: Greater than 25 minutes spent on this patients care, greater than 50% of time spent counseling, educating, and coordinating care regarding the above mentioned plan. ICD10 Worksheet Patient Problems: Problems Problem Status Onset Ascites Acute Metastasis Acute Pain management Acute
[2018-03-26] MEDS ORDERED: ALTEPLASE 2 MG VIAL IVP PRN ×2 (15:27→15:40)
[2018-03-26] MEDS: RANITIDINE 150 MG PO SCH (18:26)
--- NOTE | 2018-03-26 19:23 | SOAPPROG ---
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 Problem #1 peritonitis, likely bacterial Patient has increased white blood cells in the ascitic fluid around 6500, 94% of these are felt to be PMNs. With the acute onset of the patient's symptoms as well as some of her constitutional symptoms in particular chills and fatigue this is concerning for bacterial peritonitis. She is appropriately received a ceftriaxone and received albumin. Her increased ascites may represent malignant ascites cytology is pending however or worsening portal hypertension from pseudocirrhosis in the setting of worsening liver metastasis. -Would continue antibiotics and narrow as appropriate Problem #2 metastatic esophageal adenocarcinoma, HER-2 negative Patient has had evidence of progression of her hepatic metastasis on admission CT scan on 03/24/[address] scan from 03/07/2018. Given patient's underlying pseudocirrhosis or prognosis however she is treatment korey and it is possible she may have a good response to FOLFOX chemotherapy. With that said we will plan on initiating FOLFOX tomorrow after port placement -orders placed for FOLFOX for 03/27 after port Jc Jacob Subjective: Patient reports feeling better. She still has some sweats. no fevers or chills, she is excited to eat today. Her abdominal pain is gone, breathing is at baseline. Objective: Vital Signs Temp Pulse Resp BP Pulse Ox 36.5 C 103 H 24 H 134/81 H 93 03/26/18 17:37 03/26/18 17:37 03/26/18 17:37 03/26/18 17:37 03/26/18 17:37 Microbiology 03/25/18 09:30 Gram Stain - Final Peritoneal Fluid - Aspirate Laboratory Results 03/26/18 04:20 03/26/18 04:20 03/25/18 03/26/18 03/27/18 05:59 05:59 05:59 Intake Total 1300 5448 400 Output Total 700 660 300 Balance 600 4788 100 PT 17.9 SEC (12.0-15.0) H 03/26/18 04:20 INR 1.46 (0.83-1.16) H 03/26/18 04:20 Physical Examination Vital signs reviewed General: No acute distress appearing nontoxic female HEENT: Pupils equal round reactive to light no scleral icterus, + conjunctival pallor was appreciated oral mucosa is moist without any evidence oral pharyngeal lesions Neck is: Supple no adenopathy Cardiovascular: Regular rate and rhythm without rubs or gallops or murmur Chest: Clear to auscultation and percussion in bilateral posterior lungs Abdomen: Soft, diffusely distended, non-tender hepatomegaly appreciated Nontender no rebound or guarding Extremities: Warm well perfused 2+ dorsalis pedis and radial pulses bilaterally Neurologic: Cranial nerves II through XII are intact 5 out of 5 upper and lower extremity strength bilaterally alert and oriented ICD10 Worksheet Patient Problems: Problems Problem Status Onset Ascites Acute Metastasis Acute Pain management Acute
[2018-03-26] MEDS: ACETAMINOPHEN/CODEINE 300/30MG TAB PO PRN (20:08)
[2018-03-26] MEDS: MELATONIN 3 MG TAB PO SCH (20:09)
[2018-03-27] MEDS: NS 1,000 ML IV SCH (02:36)
[2018-03-27] MEDS: MEROPENEM 1 GM in NS 100 ML IV SCH ×2 (05:31→19:36)
--- NOTE | 2018-03-27 08:25 | HOSPPROG ---
Hospitalist Progress Note Assessment/Plan: #Severe sepsis: 2/2 peritonitis with GI translocation. If cultures negative tomorrow, transition to Ertapenem #Lactic acidosis: from acute infection, tumor burden #Hyponatremia: improved this morning #Lower extremity edema: gentle diuresis #Transaminitis: due to hypotension, tumor burden #Normocytic anemia: H/H stable #Metastatic esophageal carcinoma: plan to initiate chemo today. Port placement. -Palliative care consulted #GERD: resolved with Ranitidine #Diet: ADAT #DVT ppx: Lovenox #Disp: inpatient admission for IV abx Subjective: slept well overnight Objective: Vital Signs Temp Pulse Resp BP Pulse Ox 36.6 C 98 21 H 120/80 94 03/27/18 07:34 03/27/18 07:34 03/27/18 07:34 03/27/18 07:34 03/27/18 07:34 Microbiology 03/25/18 09:30 Gram Stain - Final Peritoneal Fluid - Aspirate Laboratory Results 03/27/18 05:15 03/27/18 05:15 03/26/18 03/27/18 03/28/18 05:59 05:59 05:59 Intake Total 5448 1283 Output Total 660 750 100 Balance 4788 533 -100 PT 17.9 SEC (12.0-15.0) H 03/26/18 04:20 INR 1.46 (0.83-1.16) H 03/26/18 04:20 - Time Spent With Patient Time Spent with Patient: greater than 35 minutes Time Spent with Patient: Greater than 35 minutes spent on this patients care, greater than 50% of time spent counseling, educating, and coordinating care regarding the above mentioned plan. - Physical Exam Constitutional: no apparent distress Eyes: PERRL Ears, Nose, Mouth, Throat: moist mucous membranes Cardiovascular: regular rate and rhythym Respiratory: no respiratory distress Gastrointestinal: normoactive bowel sounds Genitourinary: no bladder fullness Skin: warm Musculoskeletal: full muscle strength Neurologic: AAOx3, CN II-XII Intact Psychiatric: interacting appropriately ICD10 Worksheet Patient Problems: Problems Problem Status Onset Ascites Acute Metastasis Acute Pain management Acute
[2018-03-27] MEDS: RANITIDINE 150 MG PO SCH ×3 (09:20→21:01)
[2018-03-27] MEDS ORDERED: LIDOCAINE 1% 300 MG/30 ML SDV ONE (12:35)
[2018-03-27] MEDS ORDERED: LIDO/EPI 1% **for epidural** 30 ML SDV ONE (12:35)
[2018-03-27] MEDS ORDERED: GLUCAGON HCL 1 MG VIAL IVP PRN (12:43)
[2018-03-27] MEDS ORDERED: MEPERIDINE 25 MG/ML SYR IVP PRN (12:43)
[2018-03-27] MEDS ORDERED: ceFAZolin 2 GM/DEXTROSE 100 ML IV ONE ×2 (12:43→14:00)
[2018-03-27] MEDS ORDERED: NALOXONE HCL 0.4 MG/ML INJ IVP PRN (12:43)
[2018-03-27] MEDS ORDERED: FLUMAZENIL 0.5 MG/5 ML MDV IVP PRN (12:43)
[2018-03-27] MEDS ORDERED: HEPARIN 10,000 UNIT/10 ML MDV (1,000 UNIT/ML) IVP PRN (12:43)
[2018-03-27] MEDS ORDERED: MIDAZOLAM 2 MG/2 ML VIAL IVP PRN (12:43)
[2018-03-27] MEDS ORDERED: PROTAMINE SULFATE 50 MG/5 ML VIAL IVP PRN (12:43)
[2018-03-27] MEDS ORDERED: ALTEPLASE 2 MG VIAL IVP PRN (12:43)
[2018-03-27] MEDS ORDERED: fentaNYL 100 MCG/2 ML INJ IVP PRN (12:43)
[2018-03-27] MEDS ORDERED: NS 1,000 ML IV SCH (12:45)
--- NOTE | 2018-03-27 14:01 | SOAPPROG ---
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 Problem #1 peritonitis, likely bacterial Patient has increased white blood cells in the ascitic fluid around 6500, 94% of these are felt to be PMNs. With the acute onset of the patient's symptoms as well as some of her constitutional symptoms in particular chills and fatigue this is concerning for bacterial peritonitis. She is appropriately received a ceftriaxone and received albumin. 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 She seems to be improving clinically with antibiotics and supportive care. Her ascitic fluid culture is no growth after 24 hours. -Would complete 2 weeks of therapy for presumed bacterial peritonitis Problem #2 metastatic esophageal adenocarcinoma, HER-2 negative Patient has had evidence of progression of her hepatic metastasis on admission CT scan on 03/24/[address] scan from 03/07/2018. Given patient's underlying pseudocirrhosis which would belie a poor prognosis, she is treatment korey and it is possible she may have a good response to FOLFOX chemotherapy. -orders placed for FOLFOX to be started after port placement -can discharge after unhooked from 5-FU continuous infusion. Jc Jacob 03/27/18 14:19 Subjective: Patient reports feeling better. She denies fevers chills or sweats. Her energy level has improved. She is breathing at baseline. She continues on antibiotics. Objective: Vital Signs Temp Pulse Resp BP Pulse Ox 37.0 C 95 16 123/71 H 94 03/27/18 12:00 03/27/18 13:50 03/27/18 13:50 03/27/18 13:50 03/27/18 13:50 Microbiology 03/25/18 09:30 Gram Stain - Final Peritoneal Fluid - Aspirate Laboratory Results 03/27/18 05:15 03/27/18 05:15 03/26/18 03/27/18 03/28/18 05:59 05:59 05:59 Intake Total 5448 1283 Output Total 660 750 100 Balance 4788 533 -100 PT 17.9 SEC (12.0-15.0) H 03/26/18 04:20 INR 1.46 (0.83-1.16) H 03/26/18 04:20 Physical Examination Vital signs reviewed General: No acute distress appearing nontoxic female HEENT: Pupils equal round reactive to light no scleral icterus, + conjunctival pallor was appreciated oral mucosa is moist without any evidence oral pharyngeal lesions Neck is: Supple no adenopathy Cardiovascular: Regular rate and rhythm without rubs or gallops or murmur Chest: Decreased breath sound, bilateral bases, otherwise, clear to auscultation and percussion in bilateral posterior lungs Abdomen: Soft, diffusely distended, non-tender hepatomegaly appreciated (4-5 fingerbreadths right upper quadrant) Nontender no rebound or guarding Extremities: Warm well perfused 2+ dorsalis pedis and radial pulses bilaterally , 1+ bilateral lower extremity edema Neurologic: Cranial nerves II through XII are intact 5 out of 5 upper and lower extremity strength bilaterally alert and oriented ICD10 Worksheet Patient Problems: Problems Problem Status Onset Ascites Acute Metastasis Acute Pain management Acute
[2018-03-27] MEDS ORDERED: NALOXONE HCL 0.4 MG/ML INJ ONE (14:06)
[2018-03-27] MEDS ORDERED: fentaNYL 100 MCG/2 ML INJ ONE (14:06)
[2018-03-27] MEDS ORDERED: FLUMAZENIL 0.5 MG/5 ML MDV IVP ONE (14:06)
[2018-03-27] MEDS ORDERED: MIDAZOLAM 2 MG/2 ML VIAL ONE (14:06)
--- NOTE | 2018-03-27 14:11 | PCMIDPN ---
Assessment/Plan: Assessment/Plan: * Peritonitis likely associated with biliary etiology or GI translocation: Continued clinical improvement with meropenem. No recurrent abdominal pain and leukocytosis gradually improving. Patient to start FOLFOX after port placement. Will continue meropenem pending additional peritoneal fluid culture data; if culture remains negative will transition to ertapenem tomorrow to slightly narrow spectrum. Clinical findings and plan were discussed with patient and family today. 03/27/18 14:06 Subjective: Patient complains of dry mouth associated being NPO for port. Oncology anticipate starting FOLFOX post port placement. Objective: Vital Signs Temp Pulse Resp BP Pulse Ox 37.0 C 95 16 123/71 H 94 03/27/18 12:00 03/27/18 13:50 03/27/18 13:50 03/27/18 13:50 03/27/18 13:50 Microbiology 03/25/18 09:30 Gram Stain - Final Peritoneal Fluid - Aspirate Laboratory Results 03/27/18 05:15 03/27/18 05:15 03/26/18 03/27/18 03/28/18 05:59 05:59 05:59 Intake Total 5448 1283 Output Total 660 750 100 Balance 4788 533 -100 Meropenem # 3 Blood cultures x2 no growth Peritoneal cultures no growth to date Cytology pending - Physical Exam General Appearance: alert, no apparent distress EENT: No scleral icterus, No conjunctival petechiae Respiratory: lungs clear, No respiratory distress Cardiac/Chest: regular rate, rhythm Extremities: other (3+ edema bilaterally of the lower extremities) Abdomen: non-tender, distended Skin: No embolic lesions - Time Spent With Patient Time Spent with Patient: greater than 25 minutes Time Spent with Patient: Greater than 25 minutes spent on this patients care, greater than 50% of time spent counseling, educating, and coordinating care regarding the above mentioned plan. ICD10 Worksheet Patient Problems: Problems Problem Status Onset Ascites Acute Metastasis Acute Pain management Acute
[2018-03-27] MEDS ORDERED: D5W IV SCH ×3 (16:00→18:15)
[2018-03-27] MEDS ORDERED: OXALIPLATIN IV SCH (16:00)
[2018-03-27] MEDS ORDERED: LEUCOVORIN CALCIUM IV SCH (16:00)
[2018-03-27] MEDS ORDERED: IOPAMIDOL (ISOVUE-300) 100 ML BTL ONE (17:56)
[2018-03-27] MEDS ORDERED: FLUOROURACIL IV SCH ×2 (18:00→18:15)
[2018-03-27] MEDS: FUROSEMIDE 20 MG/2 ML VIAL IVP SCH (19:36)
[2018-03-27] MEDS: DEXAMETHASONE SOD PHOSPHATE 10 MG in NS (SYRINGE) 50 ML IV SCH (19:47)
[2018-03-27] MEDS: PALONOSETRON HCL 0.25 MG/5 ML VIAL IVP SCH (19:48)
[2018-03-27] MEDS: MELATONIN 3 MG TAB PO SCH (21:01)
[2018-03-27] MEDS: ACETAMINOPHEN/CODEINE 300/30MG TAB PO PRN (21:06)
[2018-03-28] MEDS: MEROPENEM 1 GM in NS 100 ML IV SCH ×2 (03:58→12:12)
[2018-03-28] MEDS: PALONOSETRON HCL 0.25 MG/5 ML VIAL IVP SCH (07:48)
[2018-03-28] MEDS: DEXAMETHASONE SOD PHOSPHATE 10 MG in NS (SYRINGE) 50 ML IV SCH (07:48)
[2018-03-28] MEDS: RANITIDINE 150 MG PO SCH ×2 (08:36→20:58)
[2018-03-28] MEDS: FUROSEMIDE 20 MG/2 ML VIAL IVP SCH (08:37)
[2018-03-28] MEDS ORDERED: D50W 25 GM/50 ML SYR IVP PRN (12:16)
--- NOTE | 2018-03-28 12:18 | HOSPPROG ---
Hospitalist Progress Note Assessment/Plan: #Severe sepsis: 2/2 peritonitis with GI translocation. ID likely to transition to Ertapenem today #Lactic acidosis: from acute infection, tumor burden #Hypoglycemia: not eating much and NPO for procedure. Encourage PO, add Ensure #Hyponatremia: improved this morning #Lower extremity edema: Lasix #Transaminitis: due to hypotension, tumor burden #Normocytic anemia: H/H stable #Metastatic esophageal carcinoma: -FOLFOX started today -Palliative care consulted #GERD: resolved with Ranitidine #Diet: ADAT #DVT ppx: Lovenox #Disp: inpatient admission for IV abx Subjective: passing flatus, no BM Objective: Vital Signs Temp Pulse Resp BP Pulse Ox 36.3 C 94 16 135/81 H 92 03/28/18 12:00 03/28/18 12:00 03/28/18 12:00 03/28/18 12:00 03/28/18 12:00 Microbiology 03/25/18 09:30 Gram Stain - Final Peritoneal Fluid - Aspirate Body Fluid Culture - Final Laboratory Results 03/28/18 04:24 03/28/18 04:24 03/27/18 03/28/18 03/29/18 05:59 05:59 05:59 Intake Total 1283 1250 Output Total 750 550 300 Balance 533 700 -300 PT 17.9 SEC (12.0-15.0) H 03/26/18 04:20 INR 1.46 (0.83-1.16) H 03/26/18 04:20 - Time Spent With Patient Time Spent with Patient: greater than 35 minutes Time Spent with Patient: Greater than 35 minutes spent on this patients care, greater than 50% of time spent counseling, educating, and coordinating care regarding the above mentioned plan. - Physical Exam Constitutional: no apparent distress Eyes: PERRL Ears, Nose, Mouth, Throat: moist mucous membranes Cardiovascular: regular rate and rhythym Respiratory: no respiratory distress Gastrointestinal: normoactive bowel sounds Genitourinary: No maxwell in urethra Skin: warm Musculoskeletal: other (port RU chest) Neurologic: CN II-XII Intact ICD10 Worksheet Patient Problems: Problems Problem Status Onset Ascites Acute Metastasis Acute Pain management Acute
--- NOTE | 2018-03-28 15:18 | PCMIDPN ---
Assessment/Plan: # sepsis due to peritonitis, resolved # Peritonitis likely associated with biliary etiology or GI translocation - much improved, slight improvement in WBC. Resolution of night sweats. Peritoneal cultures are negative but only a small amount was obtained. Blood cultures are negative --narrow antibiotics to ertapenem to complete a total of 7-10 days (day 4 today) --continue to monitor culture # Elevated LFTs: trending down, thought due to sepsis and/or more underlying malignancy Subjective: She is feeling much better compared to when she initially presented with mid- back pain that radiated to her ribs, that is now nearly resolved. She does feel that antibiotics made her symptoms remarkably improved including resolution of night sweats. She still has poor appetite without significant improvement. Denies associated mouth pain, coughing, rash, or diarrhea. ILucía, am scribing for, and in the presence of, Anni Mcnulty MD IAnni MD, personally performed the services described in this documentation, as scribed by Lucía Landry in my presence, and it is both accurate and complete. Objective: Vital Signs Temp Pulse Resp BP Pulse Ox 36.3 C 94 16 135/81 H 92 03/28/18 12:00 03/28/18 12:00 03/28/18 12:00 03/28/18 12:00 03/28/18 12:00 Microbiology 03/25/18 09:30 Gram Stain - Final Peritoneal Fluid - Aspirate Body Fluid Culture - Final Laboratory Results 03/28/18 04:24 03/28/18 04:24 03/27/18 03/28/18 03/29/18 05:59 05:59 05:59 Intake Total 1283 1250 Output Total 750 550 400 Balance 533 700 -400 Meropenem # 4 Blood cultures x2 no growth to date Peritoneal cultures no growth to date Cytology peritoneal fluid negative: abundant neutrophils - Physical Exam General Appearance: alert, no apparent distress, non-toxic EENT: PERRL/EOMI, other (moist mucous membranes ), No thrush Respiratory: lungs clear, normal breath sounds, other (R upper chest port with no tenderness, erytema, or drainage. ), No respiratory distress Neck: full range of motion, supple Cardiac/Chest: regular rate, rhythm Extremities: normal range of motion, non-tender, other (BLE edema extending up to thighs) Abdomen: normal bowel sounds, non-tender, soft, No guarding Pelvic Exam: No maxwell Skin: normal color, warm/dry, No rash Neuro/Psych: alert, normal mood/affect, other (Conversational) - Time Spent With Patient Time Spent with Patient: greater than 35 minutes (Reviewed antibiotic changes, side effects with patient at bedside.) Time Spent with Patient: Greater than 35 minutes spent on this patients care, greater than 50% of time spent counseling, educating, and coordinating care regarding the above mentioned plan. ICD10 Worksheet Patient Problems: Problems Problem Status Onset Ascites Acute Metastasis Acute Pain management Acute
--- NOTE | 2018-03-28 16:21 | ASMTCMCOM ---
CM Note CM Note Notes: A palliative consult was requested and is pending pt's sister in law arrival. Pt had a port placed. Pt will most likely transition from IV ABX to oral. ID is following. CM will continue to follow for any d/c needs. Date Signed: 03/28/2018 04:20 PM Electronically Signed By:LISE Blackmon
[2018-03-28] MEDS: ENOXAPARIN 40 MG/0.4 ML SYR SC SCH (16:30)
[2018-03-28] MEDS: ERTAPENEM 1 GM in NS 100 ML IV SCH (17:03)
--- NOTE | 2018-03-28 17:43 | SOAPPROG ---
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 Problem #1 peritonitis, likely bacterial Patient has increased white blood cells in the ascitic fluid around 6500, 94% of these are felt to be PMNs. With the acute onset of the patient's symptoms as well as some of her constitutional symptoms in particular chills and fatigue this is concerning for bacterial peritonitis. She is appropriately received a ceftriaxone and received albumin. 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 She seems to be improving clinically with antibiotics and supportive care. Her ascitic fluid culture is no growth after 24 hours. -Would complete 2 weeks of therapy for presumed bacterial peritonitis Problem #2 metastatic esophageal adenocarcinoma, HER-2 negative Patient has had evidence of progression of her hepatic metastasis on admission CT scan on 03/24/[address] scan from 03/07/2018. Given patient's underlying pseudocirrhosis which would belie a poor prognosis, she is treatment korey and it is possible she may have a good response to FOLFOX chemotherapy. -orders placed for FOLFOX to be started after port placement, this was started this AM 03/27 -can discharge after unhooked from 5-FU continuous infusion (sunday) Jc Jacob Subjective: patient reports feeling well. she is rather tired of daytime television. her energy has improved, no sweats fevers or chills. abdomen feels good, no dyspnea Objective: Vital Signs Temp Pulse Resp BP Pulse Ox 36.5 C 95 18 117/80 93 03/28/18 15:40 03/28/18 15:40 03/28/18 15:40 03/28/18 15:40 03/28/18 15:40 Microbiology 03/25/18 09:30 Gram Stain - Final Peritoneal Fluid - Aspirate Body Fluid Culture - Final Laboratory Results 03/28/18 04:24 03/28/18 04:24 03/27/18 03/28/18 03/29/18 05:59 05:59 05:59 Intake Total 1283 1250 240 Output Total 750 550 600 Balance 533 700 -360 PT 17.9 SEC (12.0-15.0) H 03/26/18 04:20 INR 1.46 (0.83-1.16) H 03/26/18 04:20 Physical Examination Vital signs reviewed General: No acute distress appearing nontoxic female HEENT: Pupils equal round reactive to light no scleral icterus, + conjunctival pallor was appreciated oral mucosa is moist without any evidence oral pharyngeal lesions Neck is: Supple no adenopathy Cardiovascular: Regular rate and rhythm without rubs or gallops or murmur Chest: Decreased breath sound, bilateral bases, otherwise, clear to auscultation and percussion in bilateral posterior lungs Abdomen: Soft, diffusely distended, non-tender hepatomegaly appreciated (4-5 fingerbreadths form costal margin -right midclavicular line) Nontender no rebound or guarding Extremities: Warm well perfused 2+ dorsalis pedis and radial pulses bilaterally , 1+ bilateral lower extremity edema Neurologic: Cranial nerves II through XII are grossly intact ICD10 Worksheet Patient Problems: Problems Problem Status Onset Ascites Acute Metastasis Acute Pain management Acute
[2018-03-28] MEDS: FAMOTIDINE 20 MG TAB PO SCH (20:59)
[2018-03-28] MEDS: ACETAMINOPHEN/CODEINE 300/30MG TAB PO PRN (20:59)
[2018-03-28] MEDS: MELATONIN 3 MG TAB PO SCH (20:59)
[2018-03-29] MEDS ORDERED: FLUOROURACIL IV SCH (09:00)
[2018-03-29] MEDS ORDERED: D5W IV SCH (09:00)
[2018-03-29] MEDS: RANITIDINE 150 MG PO SCH ×2 (09:41→19:40)
[2018-03-29] MEDS: FAMOTIDINE 20 MG TAB PO SCH ×2 (09:47→19:40)
[2018-03-29] MEDS: ENOXAPARIN 40 MG/0.4 ML SYR SC SCH (09:50)
[2018-03-29] MEDS: ERTAPENEM 1 GM in NS 100 ML IV SCH (10:17)
[2018-03-29] MEDS: FUROSEMIDE 20 MG/2 ML VIAL IVP SCH (10:17)
--- NOTE | 2018-03-29 10:42 | HOSPPROG ---
Hospitalist Progress Note Assessment/Plan: #Metastatic esophageal carcinoma: * FOLFOX started * peritonitis with GI translocation * ID following * On Etrapenem * White blood cell count up today * transaminitis * Worse liver function tests today * lower extremity edema * Continue low-dose Lasix. Will not increase due to getting chemotherapy #Severe sepsis #Lactic acidosis: from acute infection, tumor burden #Hypoglycemia: not eating much and NPO for procedure. Encourage PO, add Ensure #Hyponatremia: improved this morning #Lower extremity edema: Lasix #Normocytic anemia: H/H stable #GERD: resolved with Ranitidine #Diet: ADAT #DVT ppx: Lovenox Subjective: Feels okay. Did eat a little bit this morning. No shortness of breath. Seems like swelling is getting better Objective: Vital Signs Temp Pulse Resp BP Pulse Ox 36.5 C 97 18 150/94 H 92 03/29/18 07:29 03/29/18 07:29 03/29/18 07:29 03/29/18 07:29 03/29/18 07:29 Microbiology 03/25/18 09:30 Gram Stain - Final Peritoneal Fluid - Aspirate Body Fluid Culture - Final Laboratory Results 03/29/18 06:25 03/29/18 06:25 03/28/18 03/29/18 03/30/18 05:59 05:59 05:59 Intake Total 1250 842 Output Total 550 750 50 Balance 700 92 -50 PT 17.9 SEC (12.0-15.0) H 03/26/18 04:20 INR 1.46 (0.83-1.16) H 03/26/18 04:20 - Physical Exam Constitutional: no apparent distress, appears nourished Cardiovascular: regular rate and rhythym, no murmur, rub, or gallop, other ( Port in place) Respiratory: no respiratory distress Gastrointestinal: other (Decreased bowel sounds moderate ascites soft nontender) Skin: warm Neurologic: AAOx3 Psychiatric: interacting appropriately, not anxious, not encephalopathic, thought process linear ICD10 Worksheet Patient Problems: Problems Problem Status Onset Ascites Acute Metastasis Acute Pain management Acute
--- NOTE | 2018-03-29 19:15 | PCMIDPN ---
Assessment/Plan: Assessment/Plan: * Peritonitis likely associated with biliary etiology or GI translocation: Continued clinical improvement with antibiotic therapy. No recurrent abdominal pain. Persistent leukocytosis which may in part be related to underlying malignancy. Peritoneal cultures remain negative. Continue ertapenem while in hospital with plans to transition to oral levofloxacin 700 mg daily at time of discharge to complete 10 days total of antibiotic therapy (day # 5/10). * Increased LFTs: Likely associated with underlying malignancy. 03/29/18 19:12 03/29/18 19:13 03/29/18 19:14 03/29/18 19:15 Subjective: Patient without recurrent abdominal pain. Notes may be discharged home tomorrow. Objective: Vital Signs Temp Pulse Resp BP Pulse Ox 36.4 C 96 18 123/77 H 94 03/29/18 15:53 03/29/18 15:53 03/29/18 15:53 03/29/18 15:53 03/29/18 15:53 Laboratory Results 03/29/18 06:25 03/29/18 06:25 03/28/18 03/29/18 03/30/18 05:59 05:59 05:59 Intake Total 8014 856 2325 Output Total 550 750 450 Balance 997 80 0251 Ertapenem # 2, antibiotics # 5 Blood and peritoneal cultures no growth - Physical Exam General Appearance: alert, no apparent distress EENT: No scleral icterus, No thrush Respiratory: lungs clear, No respiratory distress Cardiac/Chest: regular rate, rhythm Abdomen: non-tender, distended ICD10 Worksheet Patient Problems: Problems Problem Status Onset Ascites Acute Metastasis Acute Pain management Acute
[2018-03-29] MEDS: MELATONIN 3 MG TAB PO SCH (19:40)
[2018-03-29] MEDS: ACETAMINOPHEN/CODEINE 300/30MG TAB PO PRN (19:40)
--- NOTE | 2018-03-29 19:58 | SOAPPROG ---
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 Problem #1 peritonitis, likely bacterial Patient has increased white blood cells in the ascitic fluid around 6500, 94% of these are felt to be PMNs. With the acute onset of the patient's symptoms as well as some of her constitutional symptoms in particular chills and fatigue this is concerning for bacterial peritonitis. 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 She seems to be improving clinically with antibiotics and supportive care. Her ascitic fluid culture is no growth after 48 hours. -Would complete 2 weeks of therapy for presumed bacterial peritonitis - ID is following, currently on ertapenem with plan to switch to levaquin Problem #2 metastatic esophageal adenocarcinoma, HER-2 negative Patient has had evidence of progression of her hepatic metastasis on admission CT scan on 03/24/[address] scan from 03/07/2018. Given patient's underlying pseudocirrhosis which would belie a poor prognosis, she is treatment korey and it is possible she may have a good response to FOLFOX chemotherapy. - FOLFOX started 03/27 -can discharge after unhooked from 5-FU continuous infusion (sunday) Jc Jacob 03/29/18 19:58 03/29/18 19:59 Subjective: Patient reports feeling well. She has no complaints in particular no abdominal pain, nausea or vomiting. No dyspnea. No fevers chills or sweats. Objective: Vital Signs Temp Pulse Resp BP Pulse Ox 36.8 C 106 H 19 134/83 H 92 03/29/18 19:31 03/29/18 19:31 03/29/18 19:31 03/29/18 19:31 03/29/18 19:31 Laboratory Results 03/29/18 06:25 03/29/18 06:25 03/28/18 03/29/18 03/30/18 05:59 05:59 05:59 Intake Total 3386 595 4661 Output Total 550 750 650 Balance 700 92 900 PT 17.9 SEC (12.0-15.0) H 03/26/18 04:20 INR 1.46 (0.83-1.16) H 03/26/18 04:20 Physical Examination Vital signs reviewed General: No acute distress appearing nontoxic female HEENT: Pupils equal round reactive to light no scleral icterus, + conjunctival pallor was appreciated oral mucosa is moist without any evidence oral pharyngeal lesions Neck is: Supple no adenopathy Cardiovascular: Regular rate and rhythm without rubs or gallops or murmur Chest: Decreased breath sound, bilateral bases, otherwise, clear to auscultation and percussion in bilateral posterior lungs Abdomen: Soft, diffusely distended, non-tender hepatomegaly appreciated (4-5 fingerbreadths form costal margin -right midclavicular line, crossing midline) Nontender no rebound or guarding Extremities: Warm well perfused 2+ dorsalis pedis and radial pulses bilaterally , 1+ bilateral lower extremity edema Neurologic: Cranial nerves II through XII are grossly intact ICD10 Worksheet Patient Problems: Problems Problem Status Onset Ascites Acute Metastasis Acute Pain management Acute
[2018-03-29] MEDS ORDERED: SALONPAS TP PRN (20:00)
[2018-03-30 05:23] LABS: PLATELET COUNT 301 10^3/uL (150-400)
[2018-03-30] MEDS ORDERED: [UNRECOGNIZED DRUG - OTHER] TD PRN (09:00)
[2018-03-30] MEDS: ENOXAPARIN 40 MG/0.4 ML SYR SC SCH (09:57)
[2018-03-30] MEDS: FAMOTIDINE 20 MG TAB PO SCH ×2 (09:58→20:44)
[2018-03-30] MEDS: ERTAPENEM 1 GM in NS 100 ML IV SCH (09:58)
[2018-03-30] MEDS: RANITIDINE 150 MG PO SCH ×2 (09:59→20:43)
[2018-03-30] MEDS ORDERED: ALBUMIN 25% 100 ML IV ONE ×2 (10:23→15:00)
--- NOTE | 2018-03-30 10:28 | HOSPPROG ---
Hospitalist Progress Note Assessment/Plan: #Metastatic esophageal carcinoma: * FOLFOX started per onc * Seondary peritonitis, presumed GI translocation * ID following * On Etrapenem, can likely transition to oral fluoroquinolone at dc * persistent leukocytosis may be related to cancer * transaminitis - secondary to malignancy, LFT's persist elevated * lower extremity edema - suspect hypoalbuminemia / poor nutrition hold lasix today given rising BUN and HR will give a dose of albumin encouraged protein intake, dietary consult requested #Severe sepsis - sepsis physiology resolving, VSS #Lactic acidosis: elevated in setting of infection, poor clearance from tumor burden / hepatic disease #Hypoglycemia: as above, encourage oral intake #Hyponatremia: likely needs protein, solute defer salt tabs due to LE edema #Normocytic anemia: H/H stable #GERD: cont Ranitidine #Diet: Regular as tolerated #DVT ppx: Lovenox #Dispo: pt and daughter concerned she is too weak to go home. Still awaiting recs from PT. May benefit from SNF. Await PT recs, CM following. Subjective: Pt feels very tired and weak. She worries she isn't strong enough to go home, doesn't think she has enough stamina to walk down her hallway to the bathroom. No fevers/chills. Very poor appetite, little oral intake. Objective: Vital Signs Temp Pulse Resp BP Pulse Ox 36.8 C 103 H 20 126/81 H 90 L 03/30/18 09:19 03/30/18 09:19 03/30/18 09:19 03/30/18 09:19 03/30/18 09:19 Microbiology 03/25/18 00:00 Blood Culture - Final Blood 03/25/18 00:00 Blood Culture - Final Blood Laboratory Results 03/30/18 04:55 03/30/18 04:55 03/29/18 03/30/18 03/31/18 05:59 05:59 05:59 Intake Total 842 2274 Output Total 750 1020 300 Balance 92 1254 -300 PT 17.9 SEC (12.0-15.0) H 03/26/18 04:20 INR 1.46 (0.83-1.16) H 03/26/18 04:20 - Physical Exam Constitutional: no apparent distress Eyes: PERRL Ears, Nose, Mouth, Throat: moist mucous membranes Cardiovascular: regular rate and rhythym Respiratory: no respiratory distress, clear to auscultation Gastrointestinal: other (soft, firm, mild distention, mild TTP no r/r/g, +BS) Skin: warm Musculoskeletal: generalized weakness Neurologic: AAOx3 Psychiatric: interacting appropriately ICD10 Worksheet Patient Problems: Problems Problem Status Onset Ascites Acute Metastasis Acute Pain management Acute
--- NOTE | 2018-03-30 14:42 | SOAPPROG ---
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 Problem #1 peritonitis, likely bacterial Patient has increased white blood cells in the ascitic fluid around 6500, 94% of these are felt to be PMNs. With the acute onset of the patient's symptoms as well as some of her constitutional symptoms in particular chills and fatigue this is concerning for bacterial peritonitis. 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 She seems to be improving clinically with antibiotics and supportive care. Her ascitic fluid culture is no growth after 48 hours. -Would complete 2 weeks of therapy for presumed bacterial peritonitis - ID is following, currently on ertapenem with plan to switch to levaquin Problem #2 metastatic esophageal adenocarcinoma, HER-2 negative Patient has had evidence of progression of her hepatic metastasis on admission CT scan on 03/24/[address] scan from 03/07/2018. Given patient's underlying pseudocirrhosis which would belie a poor prognosis, she is treatment korey and it is possible she may have a good response to FOLFOX chemotherapy. - FOLFOX started 03/27 - malnutrition - alb is 2.0. 2+ lower extremity edema. Poor PO intake. - Psychosocial risks - patient lives alone. Friends and family nearby but no one is there 29/01 Plan: - abx - calorie count - evaluate for independence in ADLs - needs a solid d/c plan Subjective: Anxious about going home since she lives alone. Not taking PO well. Objective: Vital Signs Temp Pulse Resp BP Pulse Ox 36.9 C 107 H 20 124/78 H 90 L 03/30/18 13:27 03/30/18 13:27 03/30/18 13:27 03/30/18 13:27 03/30/18 13:27 Microbiology 03/25/18 00:00 Blood Culture - Final Blood 03/25/18 00:00 Blood Culture - Final Blood Laboratory Results 03/30/18 04:55 03/30/18 04:55 03/28/18 03/29/18 03/30/18 23:59 23:59 23:59 Intake Total 890 2152 724 Output Total 750 870 850 Balance 140 1282 -126 PT 17.9 SEC (12.0-15.0) H 03/26/18 04:20 INR 1.46 (0.83-1.16) H 03/26/18 04:20 Physical Exam - Physical Exam General Appearance: alert, moderate distress, anxiety Respiratory: lungs clear Cardiac/Chest: regular rate, rhythm Abdomen: normal bowel sounds, distended Skin: pallor Extremities: swelling (2+ bilateral LE edema) ICD10 Worksheet Patient Problems: Problems Problem Status Onset Ascites Acute Metastasis Acute Pain management Acute
[2018-03-30] MEDS: guaiFENesin 600 MG TAB.ER PO SCH (16:39)
[2018-03-30] MEDS: ACETAMINOPHEN/CODEINE 300/30MG TAB PO PRN (20:45)
[2018-03-30] MEDS: MELATONIN 3 MG TAB PO SCH (20:45)
[2018-03-30] MEDS: PATCH REMOVAL 1 EA PATCH TD SCH (21:05)
[2018-03-31 06:27] LABS: PLATELET COUNT 219 10^3/uL (150-400)
[2018-03-31] MEDS: ERTAPENEM 1 GM in NS 100 ML IV SCH (09:58)
[2018-03-31] MEDS: ENOXAPARIN 40 MG/0.4 ML SYR SC SCH (10:06)
[2018-03-31] MEDS: RANITIDINE 150 MG PO SCH ×2 (10:06→20:45)
[2018-03-31] MEDS: guaiFENesin 600 MG TAB.ER PO SCH ×2 (10:38→20:46)
--- NOTE | 2018-03-31 13:12 | SOAPPROG ---
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 Problem #1 peritonitis, likely bacterial Patient has increased white blood cells in the ascitic fluid around 6500, 94% of these are felt to be PMNs. With the acute onset of the patient's symptoms as well as some of her constitutional symptoms in particular chills and fatigue this is concerning for bacterial peritonitis. 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 She seems to be improving clinically with antibiotics and supportive care. Her ascitic fluid culture is no growth after 48 hours. - Would complete 2 weeks of therapy for presumed bacterial peritonitis - ID is following, currently on ertapenem with plan to switch to levaquin Problem #2 metastatic esophageal adenocarcinoma, HER-2 negative Patient has had evidence of progression of her hepatic metastasis on admission CT scan on 03/24/[address] scan from 03/07/2018. Given patient's underlying pseudocirrhosis which would belie a poor prognosis, she is treatment korey and it is possible she may have a good response to FOLFOX chemotherapy. - FOLFOX started 03/27. Counts holding OK so far. - malnutrition - alb is 2.2. 2+ lower extremity edema. Poor PO intake. - Psychosocial risks - patient lives alone. Friends and family nearby but no one is there 29/01 - Deconditioning - Working with physical therapy. Needs to be independent in ADL prior to discharge if she is to go back home where she lives alone. - R pleural effusion - moderate and fairly asymptomatic at this time - will monitor. Plan: - abx - calorie count - monitor pleural effusion - evaluate for independence in ADLs - needs a solid d/c plan Subjective: Walked a bit in the [place] today. Frustrated with her illness and deconditioning Objective: Vital Signs Temp Pulse Resp BP Pulse Ox 37.0 C 101 H 20 118/76 91 L 03/31/18 11:48 03/31/18 11:48 03/31/18 11:48 03/31/18 11:48 03/31/18 11:48 Microbiology 03/25/18 00:00 Blood Culture - Final Blood 03/25/18 00:00 Blood Culture - Final Blood Laboratory Results 03/31/18 06:14 03/31/18 06:14 03/29/18 03/30/18 03/31/18 23:59 23:59 23:59 Intake Total 2152 2344 300 Output Total 870 1325 600 Balance 1282 1019 -300 PT 17.9 SEC (12.0-15.0) H 03/26/18 04:20 INR 1.46 (0.83-1.16) H 03/26/18 04:20 Physical Exam - Physical Exam General Appearance: alert, mild distress Respiratory: decreased breath sounds (R base), No crackles, No rales Cardiac/Chest: regular rate, rhythm Abdomen: normal bowel sounds, distended Skin: normal color, warm/dry Neuro/Psych: oriented x 3, depressed affect ICD10 Worksheet Patient Problems: Problems Problem Status Onset Ascites Acute Metastasis Acute Pain management Acute
--- NOTE | 2018-03-31 14:06 | HOSPPROG ---
Hospitalist Progress Note Assessment/Plan: 72 yo F with metastatic esophageal carcinoma diagnosed recently admitted with peritonitis and decompensated pseudocirrhosis #Metastatic esophageal carcinoma: * FOLFOX started per onc on 03/27 * Seondary peritonitis, presumed GI translocation * ID following * On Etrapenem, with a plan for total 10 day treatment, will transition to oral levofloxacin at time of dc, currently day 7/10 of treatment * transaminitis - secondary to malignancy and pseudocirrhosis with known liver mets, LFT's persist elevated * lower extremity edema - 2/2 hypoalbuminemia / poor nutrition/ pseudocirrhosis -has gotten albumin and lasix with some improvement, lasix has been on hold for mildly elevated bun, will resume and monitor, continue elevation #Severe sepsis - sepsis physiology resolved, VSS #Lactic acidosis: elevated in setting of infection, poor clearance from tumor burden / hepatic disease #Hypoglycemia: as above, encourage oral intake #Hyponatremia: hypervolemic hyponatremia, improved #Normocytic anemia: H/H stable #GERD: cont Ranitidine # deconditioning: working with pt/ot, may require snf as patient is afraid to go home as she will be alone at times, she states she will not go to snf however #Diet: Regular as tolerated # IP status, likely ready for dc in coming 1-2 days Care plan reviewed with ID, oncology. Further hx obtained from patients daughter present at bedside. Subjective: patient denies any acute issues, she is minimally interactive, she states she absolutely does not want to go to snf Objective: Vital Signs Temp Pulse Resp BP Pulse Ox 37.0 C 101 H 20 118/76 91 L 03/31/18 11:48 03/31/18 11:48 03/31/18 11:48 03/31/18 11:48 03/31/18 11:48 Laboratory Results 03/31/18 06:14 03/31/18 06:14 03/30/18 03/31/18 04/01/18 05:59 05:59 05:59 Intake Total 2274 1920 Output Total 1020 1375 250 Balance 1254 545 -250 PT 17.9 SEC (12.0-15.0) H 03/26/18 04:20 INR 1.46 (0.83-1.16) H 03/26/18 04:20 chronically ill appearing anicteric op clear rrr no mrg cta b soft nt +bs 3+ pitting edema to mid calf warm dry well perfused oriented flat affect minimally interactive - Time Spent With Patient Time Spent with Patient: greater than 35 minutes Time Spent with Patient: Greater than 35 minutes spent on this patients care, greater than 50% of time spent counseling, educating, and coordinating care regarding the above mentioned plan. ICD10 Worksheet Patient Problems: Problems Problem Status Onset Ascites Acute Pain management Acute Metastasis Acute
--- NOTE | 2018-03-31 14:59 | ASMTCMCOM ---
CM Note CM Note Notes: 03/31/2018 Case Management Note Met w/pt and son to discuss d/c needs. Pt lives alone but has supportive family members nearby who help with meals, housekeeping and transportation to medical appointments. Pt niece works for Medicaid and is assisting pt application for intermediate medicaid for HCBS services. Pt declined assistance from case management for medicaid application. PT is recommending home. Pt stated desire to go home on Sunday. Pt declined assistance from case management. Case Management d/c poc: home with family support and follow up as directed. Case Management to follow. Date Signed: 03/31/2018 02:58 PM Electronically Signed By:Michelle Acuña RN
[2018-03-31] MEDS: MELATONIN 3 MG TAB PO SCH (20:46)
[2018-03-31] MEDS: ACETAMINOPHEN/CODEINE 300/30MG TAB PO PRN (20:46)
[2018-03-31] MEDS: PATCH REMOVAL 1 EA PATCH TD SCH (20:54)
[2018-04-01 04:38] LABS: PLATELET COUNT 189 10^3/uL (150-400)
[2018-04-01] MEDS: ERTAPENEM 1 GM in NS 100 ML IV SCH (10:47)
[2018-04-01] MEDS: ENOXAPARIN 40 MG/0.4 ML SYR SC SCH (10:48)
[2018-04-01] MEDS: RANITIDINE 150 MG PO SCH (10:48)
[2018-04-01] MEDS: guaiFENesin 600 MG TAB.ER PO SCH (10:49)
[2018-04-01 11:40] VITALS: BP 137/86
[2018-04-01] MEDS ORDERED: BISACODYL 10 MG SUPP PR PRN (11:49)
[2018-04-01] MEDS ORDERED: LACTULOSE 20 GM/30 ML UDCUP PO PRN (11:49)
[2018-04-01] MEDS ORDERED: POLYETHYLENE GLYCOL 3350 17 GM PKT PO PRN (11:49)
[2018-04-01] MEDS ORDERED: MAGNESIUM HYDROXIDE 30 ML UDCUP PO PRN (11:49)
--- NOTE | 2018-04-01 13:20 | ASMTCMCOM ---
CM Note CM Note Notes: Patient to go home independently on PO ABX. No further needs. CM available if d/c needs arise. Date Signed: 04/01/2018 01:19 PM Electronically Signed By:Debby Poole LCSW
[2018-04-01] MEDS: FUROSEMIDE 20 MG/2 ML VIAL IVP SCH (13:29)
--- NOTE | 2018-04-01 14:10 | SOAPPROG ---
SOAP Progress Note Assessment/Plan: Assessment: Caren is a very pleasant 72-year-old female with history of esophageal adenocarcinoma. 1. Ascities: Her culture and Gram stain revealed no organisms. She is currently on ertapenem. Infectious Diseases has seen her and has recommended switching to ciprofloxacin. I suspect this is from her underlying disease rather than actually infectious. 2. Metastatic esophageal adenocarcinoma, her 2-: She currently is receiving FOLFOX. He was initiated 03/27/2018. She will need to follow up in clinic with Dr. Fernandez. 3. Deconditioning: She continues to work with physical therapy. She lives alone but has multiple family and friends available. 4. Right pleural effusion: She is not requiring oxygen. Subjective: Caren feels well today. She states that she is ambulating with assistance. She is eager to go home. No chest pain shortness of breath or fevers. No other complaints. Objective: Vital Signs Temp Pulse Resp BP Pulse Ox 36.8 C 111 H 18 137/86 H 93 04/01/18 11:39 04/01/18 11:39 04/01/18 11:39 04/01/18 11:39 04/01/18 11:39 Laboratory Results 04/01/18 04:25 04/01/18 04:25 03/31/18 04/01/18 04/02/18 05:59 05:59 05:59 Intake Total 1920 600 Output Total 1375 1425 200 Balance 545 -825 -200 PT 17.9 SEC (12.0-15.0) H 03/26/18 04:20 INR 1.46 (0.83-1.16) H 03/26/18 04:20 General: Thin female appears in no acute distress HEENT: Dry mucous membranes opiates clear Pulmonary: Decreased breath sounds right base but otherwise clear to auscultation. Cardiovascular: Regular rhythm no murmurs gallops rubs GI: Abdomen is distended nontender bowel sounds are present Extremities: 1+ lower extremity edema equal Neuro: Moving all extremities ICD10 Worksheet Patient Problems: Problems Problem Status Onset Ascites Acute Metastasis Acute Pain management Acute
--- NOTE | 2018-04-01 15:14 | PDIAF ---
- Diagnosis Code Status: Full Code - Medication Management Discharge Medications: Medications to Continue on Transfer ALPRAZolam [Xanax 0.5 MG (*)] 0.25 mg PO HS PRN 03/24/18 [Last Taken Unknown] Herbals/Supplements -Info Only 1 ea PO DAILY 03/24/18 [Last Taken Unknown] Methyl Salicylate/Menthol [SALONPAS PATCH] 1 each TP DAILY PRN 03/24/18 [Last Taken 03/24/18] Ranitidine HCl [Zantac] 150 mg PO BID 03/24/18 [Last Taken 03/24/18 09:00] Acetaminophen [Tylenol 325mg (*)] 650 mg PO Q4HRS PRN tab 04/01/18 [Last Taken Unknown] Acetaminophen/Codeine 300/30Mg [Tylenol #3 (*)] 1 tab PO Q6HRS PRN #60 tab 04/01 [Last Taken Unknown] Calcium Carbonate [Tums 500MG (*)] 500 mg PO TID PRN tab.chew 04/01/18 [Last Taken Unknown] Melatonin [Melatonin 3 MG (*)] 3 mg PO HS tab 04/01/18 [Last Taken Unknown] Ondansetron Odt [Zofran Odt 4 mg (*)] 4 mg PO Q4HRS PRN #60 tab 04/01/18 [Last Taken Unknown] Patch Removal 1 ea TD HS patch 04/01/18 [Last Taken Unknown] Polyethylene Glycol 3350 [Miralax 17 gm (*)] 17 gm PO DAILY PRN pkt 04/01/18 [ Last Taken Unknown] Promethazine HCl [Phenergan 25mg (*)] 12.5 - 25 mg PO Q6HRS PRN #60 tab [Last Taken Unknown] Sennosides/Docusate Sodium [Senokot-S] 1 - 2 tab PO BID tab 04/01/18 [Last Taken Unknown] guaiFENesin [Mucinex 600 MG (*)] 1,200 mg PO BID tab.er 04/01/18 [Last Taken Unknown] levOFLOXACIN [Levofloxacin] 750 mg PO DAILY #2 tablet 04/01/18 [Last Taken Unknown] Discharge Medications: Refer to the Discharge Home Medication list for PRN reason. - Orders Services needed: Home Care, Registered Nurse, Certified Relief Cook, Physical Therapy, Occupational Therapy Home Care Face to Face: I certify that this patient was under my care and that I had the required [id number] encounter meeting the encounter requirements on the discharge day. My findings support the fact that the patient is homebound as defined in Home Care Face to Face Continued: [facility] Chapter 7 Medicare Benefits Manual 30.1.1 , The condition of the patient is such that there exists a normal inability to leave home and consequently, leaving home would require a considerable and taxing effort. Isolation Type: Chemotherapy Isolation Diet Recommendation: no restrictions on diet - Follow Up Care Current Providers and Referrals: Rashida Rios PA [Primary Care Provider] - As per Instructions
--- NOTE | 2018-04-01 15:15 | PDDCSUM ---
Discharge Summary Discharge Summary: Dates of service: 03/24-04/01/18 Consultations: oncology, ID, IR Procedures performed: chest CTA, paracentesis, chest port placement Hospital course by problem 72 yo F with metastatic esophageal carcinoma diagnosed recently admitted with peritonitis and decompensated pseudocirrhosis #Metastatic esophageal carcinoma: * FOLFOX started per onc on 03/27 * Seondary peritonitis, presumed GI translocation * ID following * On Etrapenem, with a plan for total 10 day treatment, will transition to oral levofloxacin at time of dc, currently day 710 of treatment * transaminitis - secondary to malignancy and pseudocirrhosis with known liver mets, LFT's persist elevated * lower extremity edema - 2/2 hypoalbuminemia / poor nutrition/ pseudocirrhosis -has gotten albumin and lasix with some improvement, lasix has been on hold for mildly elevated bun, will resume and monitor, continue elevation #Severe sepsis - sepsis physiology resolved, VSS #Lactic acidosis: elevated in setting of infection, poor clearance from tumor burden / hepatic disease #Hypoglycemia: as above, encourage oral intake #Hyponatremia: hypervolemic hyponatremia, improved #Normocytic anemia: H/H stable #GERD: cont Ranitidine # deconditioning: working with pt/ot, still weak but patient has lots of help at home and thinks she will do OK, refuses snf #Diet: Regular # Full code DC home f/u with PCP and oncology > 35 min spent in dc of patient more than half in coordination of care
[2018-04-01] MEDS ORDERED: SENNOSIDES/DOCUSATE SODIUM TAB PO SCH ×2 (18:00→21:00)
== END 2018-04-01 18:44 | disposition home health service (06) | DRG 871 ==
LOC: F1N 23:06
PROVIDERS: ADMIT Internal Medicine; ATTEND Internal Medicine
PROC: 0JH60XZ Insertion of Tunneled Vascular Access Device into Chest Subcutaneous Tissue and Fascia, Open Approach (ICD-10-PCS; principal; 2018-03-25)
PROC: 02HV33Z Insertion of Infusion Device into Superior Vena Cava, Percutaneous Approach (ICD-10-PCS; principal; 2018-03-25)
PROC: 0W9G3ZX Drainage of Peritoneal Cavity, Percutaneous Approach, Diagnostic (ICD-10-PCS; 2018-03-25)
DX: A41.9 Sepsis, unspecified organism (principal); R65.20 Severe sepsis without septic shock; K65.9 Peritonitis, unspecified; C15.9 Malignant neoplasm of esophagus, unspecified; C78.7 Secondary malignant neoplasm of liver and intrahepatic bile duct; E46 Unspecified protein-calorie malnutrition; R18.0 Malignant ascites; E87.1 Hypo-osmolality and hyponatremia; E87.2 Acidosis; E16.2 Hypoglycemia, unspecified; K21.9 Gastro-esophageal reflux disease without esophagitis; R74.0 Nonspecific elevation of levels of transaminase and lactic acid dehydrogenase [LDH]; K44.9 Diaphragmatic hernia without obstruction or gangrene; Z85.51 Personal history of malignant neoplasm of bladder; Z87.891 Personal history of nicotine dependence
CPT/HCPCS: 82435-PO; 82565-PO; 82947-PO; 84132-PO; 84295-PO; 84520-PO; 85014-PO; 96374; 97116-GP; 97161-GP; 97166-GO; 97530-GO; C1725; C1751; C1769; C1894; G8978-GP-CJ; G8979-GP-CI; G8987-GO-CI; G8988-GO-CI; G8989-GO-CI; J0640; J0690; J0696; J1100; J1170; J1335; J1642; J1644; J1650; J1940; J2185; J2250; J2270; J2310; J2469; J3010; J9190; J9263; P9041; P9047; Q9967

== ENCOUNTER 2018-04-12 10:39 | Inpatient (IN) | payer OTHER ==
[2018-04-12] MEDS ORDERED: NS 1,000 ML IV ONE (11:04)
--- NOTE | 2018-04-12 11:13 | EDPHY ---
H & P Stated Complaint: Sent by [facility] for increased weakness and confusion. Time Seen by Provider: 04/12/18 11:03 - Personal History Current Tetanus Diphtheria and Acellular Pertussis (TDAP): Yes - Medical/Surgical History Hx Asthma: No Hx Chronic Respiratory Disease: No Hx Diabetes: No Hx Cardiac Disease: No Hx Renal Disease: No Hx Cirrhosis: No Hx Alcoholism: No Hx HIV/AIDS: No Hx Splenectomy or Spleen Trauma: No Other PMH: ESOPHAGEAL AND LIVER CA, HIATAL HERNIA, ANKLE, CARPAL, EYE SX - Social History Smoking Status: Former smoker Constitutional: Initial Vital Signs Heart Rate 95 04/12/18 10:43 Respiratory Rate 16 04/12/18 10:43 Blood Pressure 93/62 L 04/12/18 10:43 O2 Sat (%) 97 04/12/18 10:43 O2 Delivery Mode Room Air Allergies/Adverse Reactions: shellfish derived Allergy (Severe, Verified 03/08/18 16:21) Anaphylaxis tree nut [Nuts] Allergy (Severe, Verified 03/08/18 16:21) Anaphylaxis Penicillins Allergy (Verified 03/24/18 21:14) Rash/ couldn't breath Sulfa (Sulfonamide Antibiotics) Allergy (Verified 03/24/18 21:14) Swelling Home Medications: Medication Instructions Recorded ALPRAZolam [Xanax 0.5 MG (*)] 0.25 mg PO HS PRN 03/24/18 Herbals/Supplements -Info Only 1 ea PO DAILY 03/24/18 Methyl Salicylate/Menthol 1 each TP DAILY PRN 03/24/18 [SALONPAS PATCH] Ranitidine HCl [Zantac] 150 mg PO BID 03/24/18 Acetaminophen [Tylenol 325mg (*)] 650 mg PO Q4HRS PRN tab 04/01/18 Acetaminophen/Codeine 300/30Mg 1 tab PO Q6HRS PRN #60 tab 04/01/18 [Tylenol #3 (*)] Calcium Carbonate [Tums 500MG (*)] 500 mg PO TID PRN tab.chew 04/01/18 Melatonin [Melatonin 3 MG (*)] 3 mg PO HS tab 04/01/18 Ondansetron Odt [Zofran Odt 4 mg 4 mg PO Q4HRS PRN #60 tab 04/01/18 (*)] Patch Removal 1 ea TD HS patch 04/01/18 Polyethylene Glycol 3350 [Miralax 17 gm PO DAILY PRN pkt 04/01/18 17 gm (*)] Promethazine HCl [Phenergan 25mg 12.5 - 25 mg PO Q6HRS PRN #60 tab 04/01/18 (*)] Sennosides/Docusate Sodium 1 - 2 tab PO BID tab 04/01/18 [Senokot-S] guaiFENesin [Mucinex 600 MG (*)] 1,200 mg PO BID tab.er 04/01/18 levOFLOXACIN [Levofloxacin] 750 mg PO DAILY #2 tablet 04/01/18 Medical Decision Making ED Course/Re-evaluation: This is a 72 y/o female with metastatic esophageal cancer arriving with her family members requesting help with comfort care and home care resources for her end-stage cancer. They are not looking to admit patient to the hospital and are declining examination, labs, or any other interventions here. Pain management here as needed. 25mcg Fentanyl patch ordered. Plan for case management involvement and discharge home with resources. Case management attempted to arrange hospice care, but they are unable to assess the patient until Sunday unfortunately. She will require admission for comfort care until then. Dr. Murphy accepts admission. - Data Points Medications Given: Fentanyl (Duragesic) 25 mcg TD Q72H RAMIN Stop: 04/22/18 11:29 Last Admin: 04/12/18 11:53 Dose: 25 mcg Discontinued Medications Sodium Chloride (Ns) 1,000 mls @ 0 mls/hr IV EDNOW ONE; Wide Open PRN Reason: Protocol Stop: 04/12/18 11:05 Last Admin: 04/12/18 11:28 Dose: Not Given Departure - Departure Disposition: [facility] Inpatient Acute Clinical Impression: Metastasis Qualifiers: Area of secondary neoplastic involvement: unspecified site Qualified Code(s): C79.9 - Secondary malignant neoplasm of unspecified site Esophageal cancer Qualifiers: Malignant neoplasm of esophagus location: unspecified location Qualified Code(s ): C15.9 - Malignant neoplasm of esophagus, unspecified Condition: Fair Referrals: Rashida Rios PA [Primary Care Provider] - As per Instructions Report Scribed for: Barry Davis Report Scribed by: Luana Sanches Date of Report: 04/12/18 Time of Report: 11:13
[2018-04-12] MEDS ORDERED: fentaNYL 25 MCG PATCH TD SCH (11:30)
--- NOTE | 2018-04-12 13:19 | ASMTCMCOM ---
CM Note CM Note Notes: PT seen at the request of ED RN Mago. She was sent by [facility] for increased weakness and confusion. She is accompanied by her son Gavin and daughter Sunil. Pt was dx with cancer approximately one month ago and she has rapidly declined. She is currently living in her own home and her children are providing the ongoing care without nursing home assistance. Pt was listed as full code and Gavin completed the MOST form as a Proxy to change to DNR. Pt is believed to be in active stage of dying and family requested in-home hospice and nursing home care. Hospice and nursing home care are not both covered through medicare. Family was informed of the option to utilize the care center in [place] and declined. Dr. Davis to admit pt. until hospice assessment could be completed on Sunday at 10:AM. Gavin and Sunil expressed concern for the pt.s' care as the their previous experience with [facility] (approximately 2 weeks ago) was extremely frustrating. They feel that their mother was discharged when she should not have been, she was not provided with her medications and they were not given options for care after discharge. Information sent to patient rep. for follow up. CM to continue to follow. Date Signed: 04/12/2018 01:18 PM Electronically Signed By:Shady Herrera LCSW
[2018-04-12] MEDS ORDERED: ONDANSETRON 4 MG/2 ML VIAL IVP PRN (13:47)
[2018-04-12] MEDS ORDERED: ACETAMINOPHEN 325 MG TAB PO PRN (13:47)
[2018-04-12] MEDS ORDERED: ONDANSETRON DISINTEGRATING 4 MG TAB PO PRN (13:47)
--- NOTE | 2018-04-12 14:06 | PDGENHP ---
History and Physical - Chief Complaint weakness - History of Present Illness 72yo F with recently diagnosed metastatic esophageal adenocarcinoma complicated by pseudocirrhosis and ascites presents to ED at request of CC for increased weakness and confusion. Family members requesting help with comfort care and home care resources as the patient is nearing the end of her life. Family initially did not want patient to be admitted but unfortunately were unable to be set up with hospice services until Sunday, so family decided to admit. I reviewed labs drawn 04/10/18 which show pancytopenia, hyponatremia, anion gap metabolic acidosis, hypoglycemia, and LFT abnormalities. History Information - Allergies/Home Medication List Allergies/Adverse Reactions: shellfish derived Allergy (Severe, Verified 03/08/18 16:21) Anaphylaxis tree nut [Nuts] Allergy (Severe, Verified 03/08/18 16:21) Anaphylaxis Penicillins Allergy (Verified 03/24/18 21:14) Rash/ couldn't breath Sulfa (Sulfonamide Antibiotics) Allergy (Verified 03/24/18 21:14) Swelling Home Medications: ALPRAZolam [Xanax 0.5 MG (*)] 0.25 mg PO HS PRN 03/24/18 [Last Taken 04/11/18] Ranitidine HCl [Zantac] 150 mg PO BID 03/24/18 [Last Taken 04/11/18 21:00] I have personally reviewed and updated: family history, medical history, social history, surgical history - Past Medical History Additional medical history: 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 and ascites - Surgical History Additional surgical history: Liver biopsy on 03/15 - Family History Additional family history: Mother with CVA and venous thromboembolism, father with lung cancer and venous thromboembolism - Social History Smoking Status: Former smoker Alcohol Use: None Drug Use: None Additional social history: Living alone, family support Review of Systems Review of Systems: ROS: 10pt was reviewed & negative except for what was stated in HPI & below Physical Exam Physical Exam: Deferred full physical exam at family's request. Temp Pulse Resp BP Pulse Ox 36.9 C 90 16 98/67 L 93 04/12/18 13:24 04/12/18 13:24 04/12/18 13:24 04/12/18 13:24 04/12/18 13:24 Constitutional: no apparent distress, not in pain, cachectic Eyes: icteric sclera Assessment & Plan Assessment: 72yo F with recently diagnosed metastatic esophageal adenocarcinoma complicated by pseudocirrhosis and ascites presents with family with weakness and confusion. She is nearing the end of her life and family requesting hospice services. Plan: #Metastatic esophageal adenocarcinoma: Now nearing end of life, likely hours- days to live. Family on board. - Hospice consult - Comfort care order set #Pseudocirrhosis: 2/2 dense hepatic mets. Going into liver failure with elevated bilirubin and hypoglycemia on recent labs. #Ascites: Related to above. She is on antibiotics for recent bacterial peritonitis. Will stop levofloxacin. #Pancytopenia Dispo: Admit as inpatient for hospice consult.
[2018-04-12] MEDS ORDERED: CALCIUM CARBONATE 500 MG CHEWABLE TAB PO PRN (14:21)
[2018-04-12] MEDS ORDERED: HALOPERIDOL LACT 5 MG/ML INJ IVP PRN (14:41)
[2018-04-12] MEDS ORDERED: HALOPERIDOL 0.5 MG TAB PO PRN (14:41)
[2018-04-12] MEDS ORDERED: LORazepam 1 MG TAB PO PRN (14:41)
--- NOTE | 2018-04-12 15:01 | PDCONSULT ---
Remote Recruiter Note: Patient is a 72 year old female with a recent diagnosis of metastatic esophageal cancer admitted as transition to hospice. She was diagnosed after a CT scan on 03/07/18 demonstrated pseudocirrhosis from numerous metastasis as well as distal esophageal thickening which was felt to represent the primary lesion. Endoscopy 03/12/18 showed a large fungating mass with no stigmata or recent bleeding in the lower third of the esophagus. Pathology demonstrated a her2 negative adenocarcinoma. She was admitted 03/24 to 04/01 from decompensated liver failure with peritonitis. She was given palliative FOLFOX on 03/27. Daughter reports they were given chemotherapy this past week (04/10) and afterwards developed sweats and worsening mentation. Currently she speaks intermittently. When I addressed her she says "i'd rather than live like this." Review of Systems: Unable to obtain due to patient's condition Past Medical History Metastatic esophageal cancer Superficial bladder cancer Past surgical history Presumed TURBT for above Social history Patient is a former smoker, she denies history of alcohol or drugs. Family History Mother - CVA and VTE Father - Lung cancer and VTE Physical examination Vital Signs Reviewed General: somnolent, pale and jaundiced -Rest of exam deferred due to goals of care- Labs from 04/10 demonstrate worsening LFTs, leukemoid reaction Assessment and Plan: Patient is a 72 year old female with recent diagnosis of metastatic esophageal cancer started on FOLFOX 03/27 who presents for comfort measures in setting of liver failure secondary to metastatic disease. #Metastatic adenocarcinoma of the esophagus Received FOLFOX on 03/27 and 04/10. Evidence of worsening hepatic failure and labs due to encephalopathy and weakness. -Comfort measures, arrange hospice at SNF or inpatient [facility]
--- NOTE | 2018-04-12 15:12 | PDMN ---
Medical Necessity Medical necessity: [facility] IP Palliative Care Criteria: 72 yo w/ recently dx metastatoc esophageal adenocarcinoma complicated by psuedocirrhosis and ascites. Presents with increased weakness and confusion, likely hours to days to live, hospice consult, comfort care ordered. Family members requesting help with comfort care and home care resources.
[2018-04-12] MEDS: morphINE 10 MG/0.5 ML UDSYR PO PRN (20:00)
[2018-04-13] MEDS: morphINE 10 MG/0.5 ML UDSYR PO PRN (06:07)
--- NOTE | 2018-04-13 10:29 | HOSPPROG ---
Hospitalist Progress Note Assessment/Plan: 72 yo F w metastatic esophageal CA< pseudocirrhosis a/w discomfort, dying encephalopathy: alert but confused concern for terminal delirium likely component of HE esophageal CA: hospice liver disease: tumor replacing much of liver parenchyma dispo: needs inpatient hospice Subjective: case d/w dr miranda. alert, confused Objective: Vital Signs Temp Pulse Resp BP Pulse Ox 36.9 C 85 12 99/62 L 95 04/12/18 13:24 04/13/18 04:17 04/13/18 04:17 04/12/18 20:19 04/13/18 04:17 04/12/18 04/13/18 04/14/18 05:59 05:59 05:59 Intake Total 0 100 Output Total 700 500 Balance -700 -400 - Physical Exam Constitutional: appears nourished, chronically ill appearing Eyes: PERRL, anicteric sclera Ears, Nose, Mouth, Throat: moist mucous membranes, hearing normal, ears appear normal Cardiovascular: regular rate and rhythym, no murmur, rub, or gallop Respiratory: no respiratory distress, no rales or rhonchi Gastrointestinal: normoactive bowel sounds, soft, non-tender abdomen Genitourinary: No maxwell in urethra Skin: warm, normal color Musculoskeletal: No full muscle strength Neurologic: AAOx3 Psychiatric: interacting appropriately, not anxious ICD10 Worksheet Patient Problems: Problems Problem Status Onset Esophageal cancer Acute Metastasis Acute Ascites Acute Pain management Acute
[2018-04-13] MEDS: LORazepam 2 MG/ML INJ IVP PRN ×2 (13:44→22:40)
--- NOTE | 2018-04-13 13:46 | ASMTCMCOM ---
CM Note CM Note Notes: Call received from MARYANN Mckeon at [facility] . Per Linda, Hospice orders not received with yesterday's referral. Hospice order resent via [employer]; confirmed receipt with Linda. Offered to send via manual fax, Linda denied need. [facility] to see pt tomorrow, Sunday04/14/18. CM available for any further issues or concerns. Date Signed: 04/13/2018 01:44 PM Electronically Signed By:Zee Page RN
[2018-04-13] MEDS: GLYCOPYRROLATE 0.2 MG/1 ML VIAL IVP/IM PRN (16:44)
[2018-04-14] MEDS: LORazepam 2 MG/ML INJ IVP PRN (09:21)
--- NOTE | 2018-04-14 11:04 | HOSPPROG ---
Hospitalist Progress Note Assessment/Plan: 72 yo F w metastatic esophageal CA< pseudocirrhosis a/w discomfort, dying encephalopathy: alert but confused concern for terminal delirium likely component of HE esophageal CA: hospice liver disease: tumor replacing much of liver parenchyma dispo: needs inpatient hospice Subjective: less responsive today. discussed w family; answered their questions Objective: Vital Signs Temp Pulse Resp BP Pulse Ox 36.9 C 85 12 99/62 L 95 04/12/18 13:24 04/13/18 04:17 04/13/18 04:17 04/12/18 20:19 04/13/18 04:17 04/13/18 04/14/18 04/15/18 05:59 05:59 05:59 Intake Total 0 100 Output Total 700 1100 Balance -700 -1000 - Physical Exam Constitutional: chronically ill appearing, other Eyes: pale conjunctiva Ears, Nose, Mouth, Throat: No moist mucous membranes Cardiovascular: regular rate and rhythym Respiratory: no respiratory distress Gastrointestinal: normoactive bowel sounds Genitourinary: no bladder fullness, No maxwell in urethra Skin: warm, normal color Musculoskeletal: No full muscle strength Neurologic: No AAOx3 ICD10 Worksheet Patient Problems: Problems Problem Status Onset Esophageal cancer Acute Metastasis Acute Ascites Acute Pain management Acute
--- NOTE | 2018-04-14 13:59 | ASMTCMCOM ---
CM Note CM Note Notes: Spoke with Oumar who came to do an evaluation and she reported back that patient is appropriate however there are no beds at the care center which would now be the family preference. The family is going to look at the Care Center in [place]. Plan: TBD Date Signed: 04/14/2018 01:59 PM Electronically Signed By:Darling Lou RN
[2018-04-14 17:11] VITALS: BP 103/66
[2018-04-14] MEDS: morphINE 10 MG/0.5 ML UDSYR PO PRN (18:08)
[2018-04-15] MEDS: morphINE 10 MG/0.5 ML UDSYR PO PRN (05:00)
[2018-04-15] MEDS: GLYCOPYRROLATE 0.2 MG/1 ML VIAL IVP/IM PRN (06:26)
--- NOTE | 2018-04-15 08:30 | HOSPPROG ---
Hospitalist Progress Note Assessment/Plan: 72 yo F w metastatic esophageal CA< pseudocirrhosis a/w discomfort, dying she has peacefully family at bedside Subjective: this morning Objective: Vital Signs Temp Pulse Resp BP Pulse Ox 36.9 C 101 H 10 L 103/66 95 04/12/18 13:24 04/14/18 17:11 04/14/18 17:11 04/14/18 17:11 04/14/18 17:11 04/14/18 04/15/18 04/16/18 05:59 05:59 05:59 Intake Total 100 0 Output Total 1100 0 Balance -1000 0 ICD10 Worksheet Patient Problems: Problems Problem Status Onset Esophageal cancer Acute Metastasis Acute Ascites Acute Pain management Acute
--- NOTE | 2018-04-15 08:45 | GDS ---
CAUSE OF : Cardiac arrest secondary to metastatic esophageal cancer. Please see admission history and physical by Dr. Myles Murphy. The patient presented on the oo n of the with failure to thrive at home and symptom control that was unable to be accomplished at home. She had weakness and confusion. The plan had been made for hospice care. She was awaiting a n inpatient hospice bed. She was on comfort care, do not resuscitate. She became apneic this [place] Time of is roughly 8:20 a.m. /[id number]/MODL
--- NOTE | 2018-04-15 09:34 | ASMTLACE ---
LACE Length of stay for Answers: 2 days current admission Acuity / Level of Answers: Yes Care: Did the patient have an inpatient admission? Comorbidities - select Answers: Any tumor (including all that apply lymphoma or leukemia) Palliative care / End of life trajectory # of Emergency department Answers: 1-2 visits in the last 6 months Score: 10 Date Signed: 04/15/2018 09:33 AM Electronically Signed By:Darling Lou RN
--- NOTE | 2018-04-15 09:40 | ASMTCMCOM ---
CM Note CM Note Notes: Patient this am with family present, The are using [employer] services. The patient is eligible to donate eye tissue and family was approached by Jovita Stahl to do family approach for donations. They are in agreement to donate eye tissue to [facility]. Jovita Garcia is notifying eye bank. Jovita will call [facility] when timing is appropriate. CM available if other needs arise. Date Signed: 04/15/2018 09:39 AM Electronically Signed By:Darling Lou RN
== END 2018-04-15 12:09 | disposition expired | DRG 436 ==
LOC: F1N 13:30 → OBSVTOIN 13:49
PROVIDERS: ADMIT Internal Medicine; ATTEND Internal Medicine
DX: C78.7 Secondary malignant neoplasm of liver and intrahepatic bile duct (principal); C15.9 Malignant neoplasm of esophagus, unspecified; G93.40 Encephalopathy, unspecified; Z85.51 Personal history of malignant neoplasm of bladder; Z87.891 Personal history of nicotine dependence; Z66 Do not resuscitate
CPT/HCPCS: J2060